=== PATIENT | female | born 1955 | race Caucasian/White ===

== ENCOUNTER 2019-01-30 14:43 | Outpatient (REF) | payer OTHER, SELFPAY ==
--- NOTE | 2019-01-30 10:00 | PAPFT_PTH ---
PATIENT: Tonja Luna LOC: [facility] U#:[id number] AGE/SX: 63/F ROOM: RE01/30/[address]: Janine Morris MD : 1955 BED: DIS: 01/30/2019 SPEC #: [id number] RECD: 01/30/19 17:49 STATUS: PUMA TEJEDA #: [id number] JONATHAN: 01/30/19 10:[address]: Janine Morris DEPT: [facility] Cytology RECD BY: Virginia Rivera Tissues: 1 - CX/ENDOCX FOR PAP SMEARS Procedures: PAP THIN PREP/UVM Screening HPV DNA PROBE Comments: [id number]
== END 2019-01-30 15:03 ==
LOC: LBN 14:43
PROVIDERS: PCP Family Medicine; Visit Provider Family Medicine
DX: Z12.4 Encounter for screening for malignant neoplasm of cervix (principal); Z11.51 Encounter for screening for human papillomavirus (HPV)
CPT/HCPCS: 88142; 87624

== ENCOUNTER 2020-03-24 01:48 | Outpatient (CLI) | payer BC, SELFPAY ==
--- NOTE | 2020-03-24 06:30 | DI.US_ITS ---
EXAM: US ABDOMEN CLINICAL HISTORY: POSTPRANDIAL UPPER ABD PAIN,R10.10 TECHNIQUE: Ultrasound abdomen performed using standard protocol. COMPARISON: CT ABD PELVIS WITH CONTRAST from 04/07/2015 FINDINGS: ABDOMINAL AORTA AND IVC: Visualized portions normal caliber. PANCREAS: Normal where visualized. LIVER: Normal. Hepatopedal flow in the Portal Vein. GALLBLADDER: Multiple mobile gallstones are visualized. No evidence of wall thickening. No perichole cystic fluid identified. BILIARY SYSTEM: Common bile duct measures < 7 mm. No intrahepatic biliary ductal dilation. MAYBERRY'S SIGN: Negative. KIDNEYS: Kidneys are symmetric in size. No evidence of renal calculi. No evidence of hydronephrosis. No renal mass or cyst identified. SPLEEN: Not enlarged. ASCITES: None seen. IMPRESSION: Cholelithiasis. No evidence of acute cholecystitis. DATA REPOSITORY:
== END 2020-03-24 02:08 ==
PROVIDERS: PCP Family Medicine; Visit Provider Family Medicine
DX: K80.20 Calculus of gallbladder without cholecystitis without obstruction (principal)
CPT/HCPCS: 76700

== ENCOUNTER 2020-03-24 04:30 | Outpatient (CLI) | payer BC, SELFPAY ==
[2020-03-24 08:00] LABS: HCT 40.6 % (36.0-46.0); HGB 13.6 g/dL (11.2-15.7); MCH 31.1 pg (27.0-33.0); MCHC 33.5 % (32.0-36.0); MCV 92.9 fL (80-95); MPV 9.9 fL (8.0-11.0); Platelet Count 177 10^3/uL (130-400); RBC 4.37 10^6/uL (3.93-5.22); RDW 12.2 % (11.7-14.6); RDW-SD 42.4 fL; WBC 3.35 10^3/uL (4.4-10.8)
[2020-03-24 08:42] LABS: ALT 66 U/L (14-59); AST 37 U/L (15-37); Albumin 3.7 g/dL (3.4-5.0); Alkaline Phosphatase 69 U/L (46-116); Anion Gap 5.2 mmol/L (3-11); BUN 14 mg/dL (7-18); Bilirubin, Total 0.6 mg/dL (0.2-1.0); CO2 31.8 mmol/L (21.0-32.0); CREATININE 0.81 mg/dL (0.55-1.02); Calcium 8.8 mg/dL (8.5-10.1); Chloride 103 mmol/L (98-107); Glucose 93 mg/dL (74-106); Potassium 4.5 mmol/L (3.5-5.1); Sodium 140 mmol/L (136-145); Total Protein 6.7 g/dL (6.4-8.2)
== END 2020-03-24 04:50 ==
PROVIDERS: PCP Family Medicine; Visit Provider Family Medicine
DX: Z00.00 Encounter for general adult medical examination without abnormal findings (principal); K21.9 Gastro-esophageal reflux disease without esophagitis
CPT/HCPCS: 36415; 80053; 85027

== ENCOUNTER 2020-06-28 10:58 | Outpatient (REF) | payer BC, SELFPAY ==
[2020-06-29 11:59] LABS: Helicobacter pylori Ag, Feces Negative (Negative)
== END 2020-06-28 10:59 | disposition home or self-care (01) ==
LOC: LBN 10:58
PROVIDERS: PCP Family Medicine; Visit Provider Family Medicine
DX: K21.9 Gastro-esophageal reflux disease without esophagitis (principal)
CPT/HCPCS: 87338

== ENCOUNTER 2020-08-30 02:44 | Outpatient (CLI) | payer BC, SELFPAY ==
[2020-08-30 10:06] LABS: Source Nasal/Nares
[2020-08-30 13:23] LABS: COVID-19 PCR Negative (Negative)
== END 2020-08-30 02:45 | disposition home or self-care (01) ==
LOC: LBO 02:44
PROVIDERS: PCP Family Medicine; Visit Provider Surgery
DX: Z20.822 Contact with and (suspected) exposure to COVID-19 (principal); Z01.818 Encounter for other preprocedural examination
CPT/HCPCS: 87635

== ENCOUNTER 2020-09-01 09:29 | Day surgery (SDC) | payer BC, SELFPAY ==
[2020-09-01] VITALS (9 sets, daily range): BP systolic 106–142; BP diastolic 52–101; PULSE 54–65; RESP 14–18; TEMP 36–36.4; O2SAT 95–100
--- NOTE | 2020-09-01 06:58 | ROE_ITS ---
Date of service: 09/01/20 Time of Service: 14:15 Operative Note Operative Note DATE OF PROCEDURE: 09/01/20 PRE-OP DIAGNOSIS: Billiary Cholic POST-OP DIAGNOSIS: same PROCEDURE: Laparoscopic Cholecystectomy SURGEON: Arely Brand OPERATIONS SUPPORT SPECIALIST: Crissy Livingston ANESTHESIA TYPE: Local By Surgeon and General LMA/ETT Refer to Anesthesia Record ESTIMATED BLOOD LOSS: 50 PATHOLOGY: other (Gallbladder) COMPLICATIONS: None Patient was transported to: PACU Patient's condition: stable Indications: Mrs. Luna is a pleasant 64-year-old female who has biliary colic from her history. She has had this now for a year and a half. I reviewed the anatomy and pathology of gallbladder disease. We reviewed the surgery using a pamphlet with pictures. We reviewed complications. 30 minutes were spent discussing the surgery with the patient. The patient would like to proceed. Risks, benefits, complications were reviewed with the patient in the office. Complications include but are not limited to bleeding, infection, injury to stomach, small bowel and large bowel, injury to the pancreas, injury to the common bile duct necessitating drainage and referral to tertiary center for repair, bile leak, adverse reactions to the medications, complications of intubation including a sore throat or injury to the uvula, ND, stroke and even . Questions were entertained and answered to her satisfaction and she wished to proceed. No guarantees were given or implied. COVID-19 testing explained to the patient. Reason for test reviewed. Quarantine per state requirements reviewed with patient. Patient understands and agrees to testing. Findings: dialated Gallbladder with multiple stones Procedure Description: After informed consent was obtained the patient was taken to the PACU and anesthesia performed a erector spine block for post operative comfort. Once the block was in place the patient was brought to the operating room, placed in a supine position and monitors were applied. SCDs were applied to her lower extremities and she was placed under general anesthesia and intubated without difficulty. Her abdomen was then prepped and draped in a sterile fashion using ChloraPrep. At this point a timeout was done and the patient's name, date of , procedure type, allergies to medications, metal in her body, antibiotic and DVT prophylaxis, and fire risk was assessed. At this point 0.25% Bupivocaine mixed 50/50 with Exparel was injected just above the umbilicus into the dermis and subcutaneous tissue. A 5 mm incision was made with an 11 blade. The skin next to the incision was grasped with penetrating towel clamps and while pulling up on the skin a 5 mm port was placed under direct visualization. The abdomen was insuflated and then 3 more ports were placed. A 12 mm port was placed in the subxiphoid area and two 5 mm ports were placed in the right upper quadrant. The liver was inspected and looked normal. Adhesions noted from the ascending colon to the peritoneum. The patient's bed was then turned to the left and her head was brought up. The gallbladder was grasped at the body and pushed towards the right shoulder, this allowed me to visualize the neck of the gallbladder. The neck was grasped and pulled towards the right flank and down allowing me to visualize the lymph node. Using a [place] dissector with cautery the lymph node was gently dissected away from the tissues and the fatty tissue was also dissected away. The cystic duct was identified it was normal in size. The duct was dissected 360 degrees using the [place] dissector in order for me to visualize its entrance into the gallbladder. Liver was noted behind it. There were no other structures right behind. Critical view was achieved. 3 clips were placed one proximal and 2 distal and the cystic duct was cut. The cystic artery was then identified and dissected 360 degrees. It was located just medial to the cystic duct. It was visualized going into the gallbladder. Once dissected 3 more clips were placed one proximal and 2 distal and the artery was cut. Using the hook dissector the gallbladder was then dissected away from the liver bed and placed into an Endo Catch bag and pulled through the 12 mm port site. The 12 mm port was placed back into the abdomen under direct visualization. The liver bed was inspected no bleeding was noted. The abdomen was then irrigated with a liter of normal saline until the effluent was clear. The 12 mm and the 2 right upper quadrant ports were removed under direct visualization and no bleeding was noted from the fascia. The abdomen was deflated completely and lastly the umbilical port was removed. The skin was cleaned and the incisions were closed with 4-0 Vicryl. The skin was dried and skin affix was applied over the closed incisions. Needle and sponge counts were correct at the end of the case. At this point the patient was woken up, extubated and taken back to recovery in stable condition. There were no immediate complications.
--- NOTE | 2020-09-01 07:01 | W.PM.DSUDISC ---
Discharge Plan Disposition Patient Disposition: HOME Condition: Good Discharge Details Reason For Visit: Laparoscopic Cholecystectomy Attending Provider: Arely Brand Primary Care Provider: Janine Morris Home Meds and New Rx's Prescriptions: New oxycodone 5 mg tablet 5 mg PO Q6H MDD 4 tabs PRN (Reason: pain) Qty: 14 RF: 0 Continued melatonin 5 mg Tablet 5 mg PO PRN PRNRF: 0 Discharge Instructions Instructions: Laparoscopic Cholecystectomy (DC) Additional Instructions: Activity at Home after surgery: 1. Make sure you walk outside at least 4 times per day 2. You should be able to climb a flight of stairs 3. No driving while in pain or taking pain medications 4. No strenuous activity or heavy lifting for 2 weeks (laparoscopic surgery) or 4 weeks (open surgery) Diet, Nutrition, & wound healin. Avoid alcohol until after you are recovered from your surgery 2. Make sure to eat plenty of lean protein (meat, fish, eggs, cottage cheese, beans) 3. Eat a variety of fruits and vegetables. Eat plenty of high fiber foods to avoid constipation. 4. Drink plenty of liquids to stay hydrated and avoid constipation Pain Medications: 1. Tylenol 650mg every 6 hours as needed and Ibuprofen 600 mg every 6 hours as needed. You may alternate between the 2 medications every 3 hours 2. If a narcotic has been prescribed take as directed only for breakthrough pain For Constipation: 1. Take Milk of Magnesia or MiraLax as needed for constipation Other: 1. You may shower daily. Do not scrub the incisions 2. Do not soak the incisions for 1 week 3. You may alternate ice and heat as needed for pain and swelling Wound Care: 1. Keep the incisions clean and dry Please call our office if you develop: 1. Fevers >101.5 2. Nausea or Vomiting 3. Worsening pain 4. Redness and thick discharge from the wounds If after hours please call the Hospital at and ask to speak to the on-call surgeon Referrals: Arely Brand MD [ [facility] STAFF PHYSICIAN] - Activity:: No lifting >20 lb Diet:: As Tolerated Discharge Orders Discharge Orders: Discharge Order (Routine); Ordered 09/01/20 Ordered By: Arely Brand
[2020-09-01] MEDS: Lactated Ringers 1,000 ML 80 ML IV (10:24)
[2020-09-01] MEDS: AMPICILLIN/SULBACTAM 3 GM in Normal Saline 100 ML IVPB (12:10)
--- NOTE | 2020-09-01 13:00 | GB_PTH ---
PATIENT: Tonja Luna LOC: [facility] U#:[id number] AGE/SX: 64/F ROOM: RE09/01/[address]: Arely Brand MD : 1955 BED: DIS: 09/01/2020 SPEC #: [id number] RECD: 09/01/20 17:42 STATUS: PUMA RERadha #: [id number] JONATHAN: 09/01/20 13:[address]: Arely Brand DEPT: Surgical Specimen RECD BY: Virginia Rivera ENTERED: 09/01/20 17:42 SP TYPE: GB OTHR DR: Janine Morris MD Tissues: 1 - GALLBLADDER Procedures: GROSS AND MICRO LEVEL 3 Comments: [id number]
[2020-09-01] MEDS: fentaNYL 100 MCG/2 ML VIAL IVP ×2 (13:45→13:51)
== END 2020-09-01 16:20 | disposition home or self-care (01) ==
LOC: SUR 09:29
PROVIDERS: PCP Family Medicine; Visit Provider Surgery
PROC: 0FT44ZZ Resection of Gallbladder, Percutaneous Endoscopic Approach (ICD-10-PCS; CPT 47563; principal; 2020-09-01 12:00)
DX: K80.10 Calculus of gallbladder with chronic cholecystitis without obstruction (principal)
CPT/HCPCS: 47562; 88304; J0295; J1100; J1885; J2001; J2405; J2704; J3010

== ENCOUNTER 2021-01-05 16:10 | Emergency (ER) | payer MEDICARE, BC, SELFPAY ==
[2021-01-05 16:18] VITALS: BP 146/54; PULSE 75; RESP 18; TEMP 36.3; O2SAT 99
[2021-01-05] MEDS: oxyCODONE 5 mg/Acetaminophen 325 mg TAB 1 TAB PO (16:42)
--- NOTE | 2021-01-05 17:11 | DI.RAD_ITS ---
Exam(s) XR KNEE LT 4V+ EXAM: XR KNEE LT 4V+ CLINICAL HISTORY: Struck laterally with wheelbarrow. TECHNIQUE: 2D digital imaging was performed. COMPARISON: No exams were available for comparison FINDINGS: There is a lateral tibial plateau fracture with depression. Large joint effusion-hemarthrosis. Felipe ot exclude subtle nondisplaced fracture of the fibular head. Femoral condyles appear unremarkable as does the patella. IMPRESSION: Lateral tibial plateau fracture. Additional views recommended to rule out fracture of the fibular he ad. DATA REPOSITORY: RADIATION DOSE DELIVERED:
--- NOTE | 2021-01-05 17:39 | DI.VRAD_ITS ---
PROCEDURE INFORMATION: Exam: XR Left Knee Exam date and time: 01/05/2021 4:32 PM Age: 65 years old Clinical indication: Injury or trauma; Other: Struck laterally with vrad; Blunt trauma; Knee; Left TECHNIQUE: Imaging protocol: XR Left knee. Views: 4 or more views. COMPARISON: No relevant prior studies available. FINDINGS: Bones/joints: There is an abnormal appearance within the lateral tibial plateau with multiple lucent lines and slight cortical step-off seen lateral to the lateral tibial plateau spine and along the lateral tibial metaphysis as seen on AP view. Fracture extends into the tibiofemoral joint space. Soft tissues: There is soft tissue edema along the lateral tibiofemoral joint. Large suprapatellar rapatellar effusion noted. IMPRESSION: Lateral tibial plateau comminuted minimally displaced fracture. Recommend orthopedic referral and CT left knee to better evaluate extent of fracture. Dictated and Authenticated by: Sloan Dotson MD. Ordering:SHAHEEN Rojas MD
--- NOTE | 2021-01-05 17:45 | DI.CT_ITS ---
Exam(s) CT LOWER EXTREMITY LT WO EXAM: CT LOWER EXTREMITY LT WO CLINICAL HISTORY: Tibial plateau fracture. TECHNIQUE: Imaging Protocol: Axial computed tomography images with coronal and sagittal reformatted images were created and reviewed. CONTRAST MATERIAL: Intravenous: Omnipaque 350 Contrast volume:structured data in ml Contrast route:I V - Oral: yes / no COMPARISON: PLAIN FILMS PERFORMED TODAY REVIEWED FINDINGS: OSSEOUS: There is a significantly depressed lateral tibial plateau fracture. Depressed by approximat pam 12 millimeters and comminuted. Fracture lines extend down into the metaphysis of the tibia. Me dially the fracture lines extend to the sub spinous level. No fracture in the medial tibial plateau nor in the femoral condyles and no fracture evident in in the fibular head and neck. No evidence of patellar fracture. No patellar displacement. Large joint effusion-hemarthrosis noted. IMPRESSION: Prominent depressed-impacted lateral tibial plateau fracture. Hemarthrosis. RADIATION DOSE DELIVERED: Total DLP DATA REPOSITORY: All CT scans at this facility are submitted to the National Radiology Data Registry (NRDR) Dose Index Registry (DIR) with the [employer] (ACR). RADIATION OPTIMIZATION: All CT scans at this facility use at least one of these dose optimization te chniques: automated exposure control; mA and/or kV adjustment per patient size (includes targeted exa ms where dose is matched to clinical indication); or iterative reconstruction.
--- NOTE | 2021-01-05 18:28 | ED.GENADUL_ITS ---
Discharge Plan Disposition Patient Disposition: HOME Condition: Stable Discharge Details Clinical Impression: Fracture, tibial plateau Primary Care Provider: Janine Morris ED Provider: Bob Kenyon Home Meds and New Rx's Prescriptions: New oxycodone-acetaminophen [Percocet] 5-325 mg tablet 1 tab PO Q8H PRNQty: 8 RF: 0 Continued melatonin 5 mg Tablet 5 mg PO PRN PRNRF: 0 Discharge Instructions Instructions: Leg Fracture (ED) Additional Instructions: X-ray and CT imaging reveals a tibial plateau fracture. Rest, elevate, wear long-leg immobilizer, use crutches, no weightbearing. Percocet as directed, this medication may cause drowsiness and/or constipation, you may consider taking fcxg-zde-pcuimro stool softener while on this medication. Cool compresses every 2 hours for 20 minutes. Please watch for new or worsening symptoms and return to the ER for any concerns. I personally spoke with Dr. Gonzalez, our donation specialist, he is aware of your visit and will be having his office contact you tomorrow. Referrals: Dorian Gonzalez MD [ [facility] STAFF PHYSICIAN] - Medical Decision Making 65-year-old female with a left knee injury after a wheelbarrow filled with cement struck her knee causing her to fall, no other injuries. Concern for fracture versus internal derangement, less concern for dislocation. Will provide 1 tablet p.o. Percocet and obtain x-ray of the left knee. Neuro, vascular, tendon intact. Left knee 4 view x-ray read by me as a comminuted, displaced, tibial plateau fracture. This was confirmed to radiology. Discussed case with Dr. Gonzalez, recommends pain control, nonweightbearing, crutches, long-leg immobilizer, and obtain CT imaging in the ER. CT imaging will not change ER outcome but will be helpful for outpatient evaluation. He will have the office contact the patient tomorrow to set up outpatient evaluation. I also placed the patient on the orthopedic list. CT of the knee obtained Discussed x-ray findings and my conversation with Dr. Gonzalez relayed with patient and family. Long-leg immobilizer and crutches with teaching given. Patient and family have no additional questions or concerns and are comfortable with discharge plan. A prescription for short-term analgesia will be provided Medical Records Medical records reviewed: Yes I reviewed the patient's medical records. Imaging Data Radiologic Study: Attestation: I personally reviewed and interpreted this imaging study as follows: Imaging: X-Ray Radiologist's impression: PROCEDURE INFORMATION: Exam: XR Left Knee Exam date and time: 01/05/2021 4:32 PM Age: 65 years old Clinical indication: Injury or trauma; Other: Struck laterally with vrad; Blunt trauma; Knee; Left TECHNIQUE: Imaging protocol: XR Left knee. Views: 4 or more views. COMPARISON: No relevant prior studies available. FINDINGS: Bones/joints: There is an abnormal appearance within the lateral tibial plateau with multiple lucent lines and slight cortical step-off seen lateral to the lateral tibial plateau spine and along the lateral tibial metaphysis as seen on AP view. Fracture extends into the tibiofemoral joint space. Soft tissues: There is soft tissue edema along the lateral tibiofemoral joint. Large suprapatellar rapatellar effusion noted. IMPRESSION: Lateral tibial plateau comminuted minimally displaced fracture. Recommend orthopedic referral and CT left knee to better evaluate extent of fracture. Thank you for allowing us to participate in the care of your patient. HPI General Mode of arrival: ambulatory . Date/Time Provider Initiated Documentation: 01/05/21 16:12 . Limitations to Documentation: no limitations . Information obtained by: patient and family . HPI Narrative: This is a 65-year-old female, denies any significant past medical history, presenting to the ER for a left knee injury that occurred approximately 1 hour ago. She was attempting to move a wheelbarrow full of cement when it struck the lateral aspect of her left knee causing her to fall to the ground. She denies any other injury. Denies numbness, tingling, weakness. Did not strike her head. She did not take any other medications prior to arrival. Denies any pain in her left hip, ankle, foot. Reports the pain is moderate at rest, severe with movement, has not been able to bear weight. Related Data Home Medications Medication Instructions Recorded Confirmed melatonin 5 mg PO PRN PRN 09/01/20 09/14/20 oxycodone-acetaminophen [Percocet] 1 tab PO Q8H PRN #8 tab 01/05/21 Previous Rx's Medication Instructions Recorded oxycodone-acetaminophen [Percocet] 1 tab PO Q8H PRN #8 tab 01/05/21 Allergies Allergy/AdvReac Type Severity Reaction Status Date / Time house dust [House Dust] Allergy Intermediate Unverified 09/14/20 08:00 peanut Allergy Mild Headache Unverified 09/14/20 08:00 General Stated Complaint: Orthopedic PEPE: 4 Review of Systems Constitutional Constitutional: Denies headache(s) ENT Ears, Nose, Mouth, and Throat: Denies headache(s) Cardiovascular Cardiovascular: Denies chest pain and Denies dyspnea Respiratory Respiratory: Denies dyspnea Musculoskeletal Musculoskeletal: Denies deformity, Reports arthralgias, Denies numbness, Reports stiffness and Denies tingling Integumentary/Breasts Skin/Breast: Denies rash Neurologic Neurologic: Denies headache(s), Denies numbness and Denies tingling [facility] Medical History Bartholin cyst removed Family history of malignant neoplasm of colon in relative diagnosed when younger than 50 years of age GERD (gastroesophageal reflux disease) Surgical History History of laparoscopic appendectomy (04/08/15) S/P laparoscopic cholecystectomy (~09/01/20) Family History Mother Diabetes Essential hypertension Breast cancer Father , age 36 in MVA No problems noted. Sister No problems noted. Sister , age 26 Colon cancer Brother No problems noted. Maternal Grandfather , age 65 Heart disease Paternal Grandfather , age 68 Heart disease Maternal Grandmother , age 89 No problems noted. Paternal Grandmother , age 93 No problems noted. Son No problems noted. Son No problems noted. Brother No problems noted. Social History Smoking/Tobacco Use Status: Former Tobacco Use Quit Date: 05/14/93 Tobacco: How many years used: 18 Second Hand Exposure: Yes Smoking risk assessment performed?: Yes Alcohol Intake: current Alcohol Intake frequency: 0-2 drinks per day Alcohol type: wine Drug use: Never Substance use type: former substance user and marijuana Details: last alcohol intake last night 183 Caregiver/Support person: No Household members: spouse Housing: house Communication Needs: None Do you need help understanding health information?: Never current occupation: [employer] Technician Pets and animals: Yes Pets and animals: cat(s) Sexually active: Yes Do you think of yourself as: straight/heterosexual Current gender identity: female What is your relationship status?: How often do you talk on the phone with friends or family?: twice per week How often do you get together with friends or relatives?: once per week How often do you attend quaker or sabianist services?: decline to answer Do you belong to any clubs or organized social groups?: no Panel score (0-1 are the most socially isolated patients): 2 What type of physical activity do you participate in: walking, bicycling and yoga Duration: 60-90 minutes/day Frequency: 3-4 times per week Jaimee/Congregational: None Special jaimee needs: No Seatbelt use: always Helmet use: Yes Helmet use: always Drive intox or ride w/intox city bus driver: No Do you feel safe at home: Yes Do you feel safe in your relationship?: Yes Victim of physical abuse: No Victim of emotional abuse: No Victim of sexual abuse: No Would you like helpful sources: No Exam Const General: cooperative, healthy appearing and no acute distress Orientation: alert and awake HENMT Head: normal to inspection, normocephalic and atraumatic Eyes General: appearance normal, both eyes and all related structures Conjunctivae: conjunctivae normal Neck Neck: normal visual inspection, full ROM, trachea midline and supple Resp Effort & Inspection: normal respiratory effort and able to speak in complete sentences Cardio Rate: regular rate Rhythm: regular rhythm Skin General skin exam: no rashes or lesions noted Neuro General: patient alert, patient awake, moves all extremities and no focal motor deficits Cognition: normal cognition Speech: speech normal Motor: muscle tone normal throughout Sensory Exam: no sensory deficits noted Extrem General: capillary refill normal Left lower extremity: normal capillary refill, hip/thigh Details: normal to inspection and normal ROM; no tenderness and no swelling, ankle Details: normal to inspection and normal ROM; no tenderness and no swelling and foot Details: normal capillary refill, normal to inspection, toes with normal ROM and vascular exam Details: dorsalis pedis pulse present and abnormal capillary refill; no tenderness Other: Left knee with diffuse mild swelling across the anterior and lateral aspect. Skin is intact. Full extension, limited flexion. Examination reveals diffuse discomfort across the anterior and lateral aspect but much worse across the tibial plateau. There is no point patellar discomfort. Examination is difficult, slightly guarded. Neuro, vascular, tendon intact. There does appear to be discomfort with anterior draw and valgus stress, no obvious laxity. Psych Appearance: grossly normal Mental Status: mental status grossly normal Course Vital Signs Vital signs: Vital Signs Temperature 36.3 C L 01/05/21 16:18 Pulse 75 01/05/21 16:18 Respiratory Rate 18 01/05/21 16:18 Blood Pressure 146/54 H 01/05/21 16:18 Pulse Oximetry 99 01/05/21 16:18 Temperature 36.3 C L 01/05/21 16:18 Temperature Source Temporal Artery Scan 01/05/21 16:18 Pulse 75 01/05/21 16:18 Respiratory Rate 18 01/05/21 16:18 Respiratory Effort Non-Labored 01/05/21 16:20 Blood Pressure 146/54 H 01/05/21 16:18 Blood Pressure Position Supine 01/05/21 16:18 Pulse Oximetry 99 01/05/21 16:18 Oxygen Delivery Method Room Air 01/05/21 16:18 Oxygen Flow Rate 0 01/05/21 16:18 Pain Level 8 01/05/21 16:42
--- NOTE | 2021-01-05 19:18 | DI.VRAD_ITS ---
PROCEDURE INFORMATION: Exam: CT Left Lower Extremity Without Contrast, Knee Exam date and time: 01/05/2021 5:51 PM Age: 65 years old Clinical indication: Other: Tibial plateau fracture TECHNIQUE: Imaging protocol: CT of the Left lower extremity without contrast was performed. Exam focused on the knee. Radiation optimization: All CT scans at this facility use at least one of these dose optimization techniques: automated exposure control; mA and/or kV adjustment per patient size (includes targeted exams where dose is matched to clinical indication); or iterative reconstruction. COMPARISON: CR XR KNEE LT 4V+ 01/05/2021 5:05 PM FINDINGS: Bones/joints: There is a comminuted minimally displaced fracture of the lateral tibial plateau with extension into the tibiofemoral joint space. The central portion of the lateral tibial plateau as seen on sagittal and coronal series appears collapsed. The adjacent fibula appears without acute osseous injury. No additional acute osseous injury seen. Soft tissues: There is lipohemarthrosis within the anterior knee. IMPRESSION: Comminuted minimally displaced lateral tibial plateau fracture with lipohemarthrosis. Recommend orthopedic referral. Dictated and Authenticated by: Sloan Dotson MD. Ordering:SHAHEEN Rojas MD
== END 2021-01-05 19:03 | disposition home or self-care (01) ==
PROVIDERS: Emergency Provider Physician Assistant; PCP Family Medicine
DX: S82.142A Displaced bicondylar fracture of left tibia, initial encounter for closed fracture (principal); W22.8XXA Striking against or struck by other objects, initial encounter
CPT/HCPCS: 29505; 99285; 73564; 73700; 99284

== ENCOUNTER → 2021-08-11 10:22 | Outpatient (BNVA) | payer MEDICARE, SELFPAY | PROVIDERS: PCP Family Medicine; Referring Provider Family Medicine; Visit Provider Physical Therapy Assistant | DX: Z12.11 Encounter for screening for malignant neoplasm of colon (principal); Z80.0 Family history of malignant neoplasm of digestive organs ==

== ENCOUNTER 2021-09-05 06:14 | Day surgery (SDC) | payer MEDICARE, SELFPAY ==
--- NOTE | 2021-09-05 06:25 | COLE_ITS ---
Colonoscopy Report Date of procedure: 09/05/21 Pre-op diagnosis general: Colon Cancer Screening and Family history of colon can cer Post-op diagnosis procedure note: other (rectal polyp, diverticulosis) Procedure: Colonoscopy Surgeon: Arely Brand Anesthesia Type: General:No Airway Estimated blood loss (mL): 2 Pathology: other (rectal polyp) Complications: None Disposition: same day Indications: The patient is here for Colonoscopy pre-op. Her last screening was in and was unremarkable. She has a family history of colon cancer in her sister. She has not had any bowel habit changes. -Discussed colonoscopy bowel prep as well as the procedure. Discussed possible complications of the procedure to include bleeding, pain, perforation, missed small lesion/polyp, sore throat, aspiration and adverse reaction to the medications. Questions were answered to patient?s satisfaction. No guarantees were implied or given.? Prep: Miralax/Dulcolax Procedure Start Time: 07:29 Procedure End Time: 07:53 Retraction Time: 10 minutes Findings: One small sessile polyp in the rectum Mild diverticulosis in the sigmoid colon Procedure Description: After informed consent was obtained the patient was taken to the procedure room and placed in a left decubitous position. Monitors were applied and a time out was done. The patients name, date of , procedure, allergies to medications and metal in their body was reviewed. The patient was then sedated. Once sedated and comfortable a rectal exam was done. External exam was normal. Internal exam revealed a normal sphincter tone and no palpable masses. The scope was then introduced and retro-flexed. No internal hemorrhoids, polyps or masses were identified on retro-flexion. The scope was then advanced to the cecum with some difficulty. The ileocecal vlave and appendiceal orifice were identified. The prep was good. The scope was then slowly retracted over 10 minutes back into the rectum. Polyps were removed with cold forceps in the rectum. There was mild sigmoid diverticulosis noted. The scope was removed and the patient was woken up and taken back to Same day surgery in stable condition. The patient tolerated the procedure well and there were no immediate complications. Follow up: The patient should follow up in 5 years unless they develop changes in bowel habits or other new gastrointestinal complaints.
--- NOTE | 2021-09-05 06:26 | W.PM.DSUDISC ---
Discharge Plan Disposition Patient Disposition: HOME Condition: Good Discharge Details Reason For Visit: Colonoscopy Attending Provider: Arely Brand Primary Care Provider: Amado Moeller Home Meds and New Rx's Prescriptions: Continued cholecalciferol (vitamin D3) 10 mcg (400 unit) capsule 10 mcg PO DAILY 0RF Discontinued bisacodyl [Dulcolax (bisacodyl)] 5 mg tablet,delayed release (DR/EC) 5 mg PO ONCE Qty: 4 0RF Rx Instructions: Take according to provider's instructions for colonoscopy prep. polyethylene glycol 3350 17 gram/dose powder 17 g PO ONCE Qty: 238 0RF Rx Instructions: To be taken as directed by prescriber's office for colonoscopy prep. Discharge Instructions Instructions: Colorectal Polyps (DC), Diverticulosis (DC) Additional Instructions: Findings: One small polyp in the rectum mild diverticulosis in the sigmoid colon Follow up: 5 years Please call if you develop: fevers >101.5 Nausea or Vomiting Abdominal pain that is not transient Rectal bleeding that is more then a tbsp A hard abdomen and inability to pass gas DAY SURGERY UNIT POST ENDOSCOPY INSTRUCTIONS Instructions for everyone who is given Anesthesia: For your safety, please do the following for the next 24 Hours: a. Do not drive or operate dangerous equipment b. Do not drink alcohol beverages or use any recreational drugs for the first 24 hours or while taking pain medications. The medications in your body may have a reaction that can be dangerous. c. Do not make any important decisions or sign any important papers 1. Generally there are no restrictions on your activity after a day or so has gone by, but you may feel a bit fatigued for a few days. 2. After you arrive home you may have a light meal and return to a normal diet as you can tolerate it without feeling sick to your stomach. 3. After surgery, you may feel pain or discomfort. This should be only transient, but if it persists please contact your doctor. 4. If there are any questions regarding the findings of your procedure, please feel free to contact your doctor. 6. If you are unable to contact your doctor with a problem, contact the hospital at [phone]. 7. Continue all your regular medications unless directed otherwise. I understand the above instructions and have no questions. Signature of Patient or Responsible Adult Escort Date/Time Name of Responsible Adult Escort Signature of Nurse Date/Time Activity:: Activity as Tolerated Diet:: high fiber diet Discharge Orders Discharge Orders: Discharge Order (Routine); Ordered 09/05/21 Ordered By: Arely Brand
[2021-09-05 06:33] VITALS: BP 125/70; PULSE 73; RESP 16; TEMP 36.1; O2SAT 99
--- NOTE | 2021-09-05 06:56 | ANES.PREOP_ITS ---
General Info Date of Service Date Performed: 09/05/21 Height: 5 ft 4.17 in Weight: 71.7 kg Body Mass Index (BMI): 26.9 Surgical Procedure: Operation Date: 09/05/21 07:35 Proposed Procedure Side Surgeon p Colonoscopy Arely Brand MD Meds Allergies and Home Medications Allergies Allergy/AdvReac Type Severity Reaction Status Date / Time house dust [House Dust] Allergy Intermediate Unverified 09/05/21 06:29 peanut Allergy Mild Headache Unverified 09/05/21 06:29 Home Medication Medication Instructions Recorded bisacodyl 5 mg tablet,delayed 5 mg PO ONCE #4 tab 08/11/21 release (Dulcolax (bisacodyl)) cholecalciferol (vitamin D3) 10 10 mcg PO DAILY 08/11/21 mcg (400 unit) capsule polyethylene glycol 3350 17 17 g PO ONCE #238 g 08/11/21 gram/dose oral powder Current Visit Medications: Current Medications Generic Name Dose Route Start Last Admin Trade Name Freq PRN Reason Stop Dose Admin Hyoscyamine Sulfate 0.125 mg 09/05/21 06:27 Hyoscyamine 0.125 Mg Sl/Oral/Chew SL DIRECTED PRN Ringer's Solution 1,000 mls @ 80 mls/hr 09/05/21 06:00 IV 10/02/21 23:59 INFUSION [facility] IV Miscellaneous Supplies 1 each 09/05/21 06:00 Iv Access IV 10/02/21 23:59 DIRECTED MARCE Ondansetron HCl 4 mg 09/05/21 06:27 Ondansetron 4 Mg/2 Ml Vial IVP Q4H PRN PRN Nausea / Vomiting Sodium Chloride 0 ml 09/05/21 06:00 Normal Saline Flush 10 Ml Syr IV 10/02/21 23:59 PRN PRN Sodium Chloride 0 ml 09/05/21 06:00 Normal Saline 10 Ml Vial IJ 10/02/21 23:59 DIRECTED PRN Sterile Water 0 ml 09/05/21 06:00 Water,Injection,Sterile 10 Ml Vial IJ 10/02/21 23:59 DIRECTED PRN PFSH Active Problems Active Problems: Problem Status Onset Code Immunization counseling Z71.89 Epigastric pain R10.13 Fracture, tibial plateau S82.143A Screening for colon cancer Z12.11 Medical History Medical History Family history of malignant neoplasm of colon in relative diagnosed when younger than 50 years of age GERD (gastroesophageal reflux disease) Medical History Comments:: Seasonal Allergies. pt has metal in Left knee. Surgical History Surgical History (Updated 09/05/21 @ 06:42 by Salima Maguire RN) Bartholin cyst removed History of laparoscopic appendectomy (04/08/15) Hx of knee surgery (01/12/21) per pt: left tibia knee fracture repair with plate and screws S/P laparoscopic cholecystectomy (~09/01/20) Tobacco Smoking/Tobacco Use Status: Former Tobacco Use Passive smoking exposure: Yes Second hand exposure: Yes Alcohol Alcohol Intake: current Alcohol intake frequency: 0-2 drinks per day Alcohol type: wine Substance Use Substance use: Rarely Substance use type: former substance user and marijuana Details: last alcohol intake last night 1829 Vital Signs and Lab Results Vital Signs Most Recent Vital Signs in EMR: Most Recent Vital Signs Temp Pulse Resp BP Pulse Ox 36.1 C L 73 16 125/70 99 09/05/21 06:33 09/05/21 06:33 09/05/21 06:33 09/05/21 06:33 09/05/21 06:33 Lab Results Blood Type / Crossmatch: No Data to Display Complete Blood Count: No Data to Display Complete Metabolic Panel: No Data to Display Liver Function Panel: No Data to Display Coagulation Panel: No Data to Display Cardiac Panel: No Data to Display Arterial Blood Gas: No Data to Display Venous Blood Gas: No Data to Display Pancreas Panel: No Data to Display Thyroid Panel: No Data to Display Infectious Disease: No Data to Display Blood Cultures: No Data to Display Toxicology Panel: No Data to Display Anesthesia Assessment and Plan Anesthesia History Personal History: No History of Anesthesia Complications Family History: No Family History of Anesthesia Complications Exercise Tolerance Exercise Tolerance: Metabolic Equivalents>4 Pertinent Negatives Pertinent Negatives: No Major Cardiovascular Symptoms or Complaints and No Major Pulmonary Symptoms or Complaints Cardiac & Pulmonary Exam Cardiac Exam: Normal S1/S2 Heart Sounds Pulmonary Exam: Clear Bilateral Breath Sounds Implantable Cardiac Device Does patient have a Pacemaker or an ICD?: No Airway Exam Known Difficult Airway: No Mallampati Class: 2 Mouth Opening: Normal (> 3cm) Thyromental Distance: Greater than 3 cm Neck Range of Motion: Full ROM Neck Circumference: Normal Teeth Condition: Normal Dentition ASA Classification ASA Score: ASA 2 Emergency Case?: No NPO Status NPO Status: NPO Clears >2 hours, Solids >8 hours Anesthesia Plan Resuscitation Status: Full Code Anesthesia Technique: General Anesthesia Airway Planned: Natural Airway Monitors Used: Standard Monitors
[2021-09-05] MEDS: Lactated Ringers 1,000 ML 80 ML IV (06:57)
[2021-09-05 06:58] VITALS: BMI 26.9
--- NOTE | 2021-09-05 07:50 | BOWEL_PTH ---
PATIENT: Tonja Luna LOC: [facility] U#:[id number] AGE/SX: 65/F ROOM: RE09/05/[address]: Arely Brand MD : 1955 BED: DIS: 09/05/2021 SPEC #: [id number] RECD: 09/05/21 12:49 STATUS: PUMA REQ #: [id number] JONATHAN: 09/05/21 07:[address]: Arely Brand DEPT: Surgical Specimen RECD BY: Virginia Rivera ENTERED: 09/05/21 12:50 SP TYPE: Bowel OTHR DR: Amado Moeller Tissues: 1 - BIOPSY BOWEL Procedures: GROSS AND MICRO LEVEL 4 Comments: [id number]
[2021-09-05 07:57] VITALS: BP 116/66; PULSE 70; RESP 14; TEMP 36.5; O2SAT 99
[2021-09-05 08:26] VITALS: BP 131/65; PULSE 68; RESP 16; TEMP 36; O2SAT 99
--- NOTE | 2021-09-05 08:29 | W.ANESPOSTOP ---
Postoperative Evaluation Date, Time and Location Date Performed: 09/05/21 Time Performed: 07:58 Patient Location: Day Surgery Unit Vital Signs Most Recent Imported Vital Signs: Most Recent Vital Signs Temp Pulse Resp BP Pulse Ox 36 C L 68 16 131/65 99 09/05/21 08:26 09/05/21 08:26 09/05/21 08:26 09/05/21 08:26 09/05/21 08:26 Pain Score Most Recent Pain Score: Most Recent Pain Score Pain Level 0 09/05/21 08:26 Assessment Mental Status: Awake (Alert & Oriented to Patient Baseline) Airway and Respiratory Function: Patent airway with normal (patient baseline) respiratory exam Cardiovascular Function: Hemodynamically Stable Hydration Status: Adequately Hydrated Nausea & Vomiting: No Nausea or Vomiting Pain: Pt. Denies Any Pain Peripheral Nerve Block: Patient did not receive a nerve block
== END 2021-09-05 09:02 | disposition home or self-care (01) ==
PROVIDERS: PCP Family Medicine; Visit Provider Surgery
PROC: 0DJD8ZZ Inspection of Lower Intestinal Tract, Via Natural or Artificial Opening Endoscopic (ICD-10-PCS; CPT 45378; principal; 2021-09-05 07:30)
DX: Z12.11 Encounter for screening for malignant neoplasm of colon (principal); K62.1 Rectal polyp; K57.30 Diverticulosis of large intestine without perforation or abscess without bleeding; Z80.0 Family history of malignant neoplasm of digestive organs
CPT/HCPCS: 45380; 88305; J2001

== ENCOUNTER 2022-06-08 01:20 | Outpatient (CLI) | payer MEDICARE, SELFPAY ==
--- NOTE | 2022-06-08 07:45 | DI.DEXA_ITS ---
Exam(s) XR DEXA BONE DENSITY W/WO NUZHAT EXAM: XR DEXA BONE DENSITY W/WO NUZHAT CLINICAL HISTORY: screening for osteoporosis in postmenopausal woman,z78.0 TECHNIQUE: Routine DEXA evaluation of the lumbar spine, hip, or forearm. COMPARISON: No exams were available for comparison FINDINGS: Performed on a Hologic unit. Lateral image: No compression fracture evident. Lumbar Spine total T-score: -2.5 Hip total T-score:-2.0 Independent reading at the level of the femoral neck yields T-score of -3.0 Forearm total T-score: -3.2 IMPRESSION: Bone mineral density measures in the osteoporosis range. Fracture risk is high. Note: Any spine fracture indicates 5x risk for subsequent spine fracture and 2x risk for subsequent h ip fracture. World Health Organization criteria for BMD interpretation classify patients: Normal...... T- Score at or above -1.0 Osteopenic... T- Score between -1.0 and -2.5 Osteoporosis... T-Score at or below -2.5
== END 2022-06-08 01:40 ==
LOC: DI 01:20
PROVIDERS: PCP Nurse Practitioner Family; Visit Provider Nurse Practitioner Family
DX: Z78.0 Asymptomatic menopausal state (principal); Z13.820 Encounter for screening for osteoporosis; M81.0 Age-related osteoporosis without current pathological fracture
CPT/HCPCS: 77080

== ENCOUNTER 2022-06-08 02:31 | Outpatient (CLI) | payer MEDICARE, SELFPAY ==
[2022-06-08 13:07] LABS: Hemoglobin A1C 5.5 % (<5.7)
[2022-06-08 13:21] LABS: BUN 21 mg/dL (7-18); Calcium 9.3 mg/dL (8.5-10.1); Calculated LDL 169 mg/dL (<100); Chloride 102 mmol/L (98-107); Cholesterol 284 mg/dL (<200); Estimated GFR 62.13 (mL/min/1.73m2); Glucose 125 mg/dL (74-106); HDL Cholesterol 75 mg/dL (40-60); Potassium 3.9 mmol/L (3.5-5.1); Sodium 139 mmol/L (136-145); TSH (W/Ref FT4) 2.23 uIU/mL (0.36-3.74); Triglyceride 202 mg/dL (<150)
== END 2022-06-08 02:32 | disposition home or self-care (01) ==
LOC: LBO 02:31
PROVIDERS: PCP Nurse Practitioner Family; Visit Provider Nurse Practitioner Family
DX: E78.5 Hyperlipidemia, unspecified (principal); R73.01 Impaired fasting glucose
CPT/HCPCS: 36415; 80048; 80061; 83036; 84443

== ENCOUNTER 2022-07-26 02:04 | Outpatient (RCR) | payer MEDICARE, SELFPAY ==
[2022-07-26] MEDS: ZOLEDRONIC ACID/MANNITOL/WATER 5 MG/100 ML BTL 300 MG IVPB (09:05)
[2022-07-26] MEDS: Normal Saline Flush 10 ML SYR IVP (09:09)
== END 2022-08-11 23:59 | disposition home or self-care (01) ==
LOC: INF 02:04
PROVIDERS: PCP Nurse Practitioner Family; Visit Provider Nurse Practitioner Family
DX: M81.0 Age-related osteoporosis without current pathological fracture (principal)
CPT/HCPCS: 96365; J3489

== ENCOUNTER 2022-08-08 01:24 | Outpatient (CLI) | payer MEDICARE, SELFPAY ==
--- NOTE | 2022-08-08 08:00 | DI.US_ITS ---
Exam(s) US HERNIA EXAM: US HERNIA CLINICAL HISTORY: ? left inguinal hernia,lt groin mass,r19.09. TECHNIQUE: Ultrasound was performed using standard protocol. COMPARISON: CT ABD PELVIS WITH CONTRAST from 04/07/2015 FINDINGS: Sonographic assessment utilizing grayscale and color Doppler imaging was performed and targeted to th e area of clinical concern. There are bilateral normal appearing lymph nodes in the inguinal regions. The largest on the right m easures 2.1 x 1.1 x 1.6 cm. In the left inguinal region there is a hypoechoic mass measuring 3.7 x 2 .1 x 3.1 cm. There may be a connection to another adjacent lymph node in the region. IMPRESSION: 3.7 x 2.1 x 3.1 cm hypoechoic mass in the left inguinal region. It does not have a fat vascular hilu m like sonographically normal lymph nodes exhibit. This may represent a pathologic lymph node which can be seen with infection/inflammation or possible neoplasm. CT scan of the pelvis with contrast damien uld be considered for further evaluation. DATA REPOSITORY:
== END 2022-08-08 01:44 ==
LOC: DI 01:24
PROVIDERS: PCP Nurse Practitioner Family; Visit Provider Nurse Practitioner Family
DX: R19.04 Left lower quadrant abdominal swelling, mass and lump
CPT/HCPCS: 76857

== ENCOUNTER 2022-08-24 00:50 | Outpatient (CLI) | payer MEDICARE, SELFPAY ==
--- NOTE | 2022-08-24 09:00 | DI.CT_ITS ---
Exam(s) CT PELVIC W EXAM: CT PELVIC W CLINICAL HISTORY: f/u US, LT GROIN MASS, R19.09. TECHNIQUE: Imaging Protocol: Axial computed tomography images with coronal and sagittal reformatted images were created and reviewed. CONTRAST MATERIAL: Intravenous: Omnipaque 350 Contrast volume:100 mL contrast route:IV - Oral: yes COMPARISON: CT ABD PELVIS WITH CONTRAST from 04/07/2015 US US HERNIA from 08/08/2022 FINDINGS: Soft tissues: Homogeneous ovoid mass left groin, consistent with a lymph node, measuring 4.2 x 2.7 by 3.6 cm. Or other smaller adjacent lymph nodes noted in the left inguinal region. Small right groin adenopathy also present, largest measuring 2.2 cm. Several enlarged retroperitoneal lymph nodes are noted, 1 below the aortic bifurcation measuring 12 millimeters in the other to the right of the righ t common iliac artery measuring 15 millimeters. Other tiny mesenteric nodes are seen. Bladder: Symmetric distention, no gross wall thickening. Bowel: S/P appendectomy. Mild diverticulosis. No obstruction or bowel wall thickening. Peritoneal cavity: No ascites, collection or mesenteric inflammatory response. Reproductive: Unremarkable. Bones: No fracture, lytic or blastic lesion. IMPRESSION: Markedly enlarged lymph node in the left groin region. Other smaller but abnormally enlarged lymph n odes noted in the right groin and retroperitoneum. The findings could represent lymphoma. RADIATION DOSE DELIVERED: 495.39mGy.cm Total DLP DATA REPOSITORY: All CT scans at this facility are submitted to the National Radiology Data Registry (NRDR) Dose Index Registry (DIR) with the [employer] (ACR). RADIATION OPTIMIZATION: All CT scans at this facility use at least one of these dose optimization te chniques: automated exposure control; mA and/or kV adjustment per patient size (includes targeted exa ms where dose is matched to clinical indication); or iterative reconstruction.
[2022-08-24] MEDS: Barium Sulfate 2% W/V-Creamy Vanilla Smoothie 450 ML BTL 900 ML PO (09:27)
[2022-08-24 09:31] LABS: CREATININE 0.7 mg/dL (0.55-1.02); Estimated GFR 95.32 (mL/min/1.73m2)
[2022-08-24] MEDS: Omnipaque 350 MG/ML 500 ML BTL-Imaging package 100 ML IJ (10:56)
[2022-08-24] MEDS: Normal Saline - Diluent 50 ML VIAL IJ (10:58)
== END 2022-08-24 01:10 ==
LOC: DI 00:50
PROVIDERS: PCP Nurse Practitioner Family; Visit Provider Nurse Practitioner Family
DX: R19.09 Other intra-abdominal and pelvic swelling, mass and lump (principal); Z01.812 Encounter for preprocedural laboratory examination; R59.0 Localized enlarged lymph nodes
CPT/HCPCS: 72193; 82565

== ENCOUNTER → 2022-08-28 10:26 | Outpatient (BNVA) | payer MEDICARE, SELFPAY | PROVIDERS: PCP Nurse Practitioner Family; Referring Provider Nurse Practitioner Family; Visit Provider Surgery | DX: R59.1 Generalized enlarged lymph nodes (principal) | CPT/HCPCS: 99213; 99214 ==

== ENCOUNTER 2022-08-29 02:47 | Outpatient (CLI) | payer MEDICARE, SELFPAY ==
[2022-08-29 13:46] LABS: Abs Immature Grans 0.01 10^3/uL (0.0-0.06); Absolute Basophil Count 0.02 10^3/uL (0.0-0.2); Absolute Eosinophil Count 0.04 10^3/uL (0.0-0.7); Absolute Lymphocyte Count 0.99 10^3/uL (1.2-3.4); Absolute Monocyte Count 0.29 10^3/uL (0.1-0.8); Absolute Neutrophil Count 3.07 10^3/uL (1.2-6.7); Basophils % 0.5; Eosinophils % 0.9; HCT 39.5 % (36.0-46.0); HGB 13.3 g/dL (11.2-15.7); Immature Grans % 0.2; Lymphocytes % 22.4; MCH 30.6 pg (27.0-33.0); MCHC 33.7 % (32.0-36.0); MCV 91 fL (80-95); MPV 9.4 fL (8.0-11.0); Monocytes % 6.6; Neutrophils % 69.4; Platelet Count 188 10^3/uL (130-400); RBC 4.34 10^6/uL (3.93-5.22); RDW 12.3 % (11.7-14.6); WBC 4.42 10^3/uL (4.4-10.8)
[2022-08-29 14:08] LABS: ALT 41 U/L (14-59); AST 25 U/L (15-37); Albumin 4.1 g/dL (3.4-5.0); Alkaline Phosphatase 68 U/L (46-116); Anion Gap 5.4 mmol/L (3-11); BUN 22 mg/dL (7-18); Bilirubin, Total 0.5 mg/dL (0.2-1.0); CO2 30.6 mmol/L (21.0-32.0); CREATININE 0.9 mg/dL (0.55-1.02); Calcium 9.1 mg/dL (8.5-10.1); Chloride 104 mmol/L (98-107); Estimated GFR 70.51 (mL/min/1.73m2); Glucose 131 mg/dL (74-106); Potassium 3.9 mmol/L (3.5-5.1); Sodium 140 mmol/L (136-145); Total Protein 7.6 g/dL (6.4-8.2)
[2022-08-30 10:34] LABS: HIV-1/2 Ag & Ab Screen Negative (Negative)
== END 2022-08-29 02:48 | disposition home or self-care (01) ==
PROVIDERS: PCP Nurse Practitioner Family; Visit Provider Nurse Practitioner Family
DX: R59.1 Generalized enlarged lymph nodes (principal); Z11.4 Encounter for screening for human immunodeficiency virus [HIV]
CPT/HCPCS: 36415; 80053; 87389; 85025

== ENCOUNTER 2022-08-30 09:55 | Day surgery (SDC) | payer MEDICARE, SELFPAY ==
--- NOTE | 2022-08-30 07:10 | W.PM.OP ---
Date of service: 08/30/22 Time of Service: 12:00 Operative Note Operative Note DATE OF PROCEDURE: 08/30/22 PRE-OP DIAGNOSIS: lymphadenopathy POST-OP DIAGNOSIS: same PROCEDURE: Excisional biopsy of left inguinal lymph node SURGEON: Arely Brand ANESTHESIA TYPE: Local By Surgeon and General:No Airway Refer to Anesthesia Record ESTIMATED BLOOD LOSS: 5 PATHOLOGY: other (lymphnode) COMPLICATIONS: None Patient was transported to: same day Patient's condition: stable Indications: Mrs Luna is a pleasant 66-year-old female who comes in today because of bilateral inguinal and retroperitoneal lymphadenopathy.? On exam she also has right axillary lymphadenopathy.? This is concerning for lymphoma.? No signs of infection today no scratches on her skin.? Discussed FNA versus excisional biopsy of the lymph node.? I recommend excisional biopsy of the lymph node because this will give the pathologist more tissue so that they can look for malignancy but can also look for infectious sources.? The procedure was discussed with her and her as well as the risks, benefits and complications.? Patient understands the risks, benefits and complications and wishes to proceed.? Complications include but are not limited to bleeding, infection, wound dehiscence, seroma, hematoma and adverse reactions to the medications. Findings: Large 4 x 3 cm lymphnode Matted lymphnodes Procedure Description: After informed consent was obtained the patient was taken to the operating room and placed in the supine position. Monitors were applied and the patient was placed under general without airway. A timeout was then done. The patient's name, date of , allergies to medications, procedure to be done and site, DVT prophylaxis and antibiotic prophylaxis were reviewed. Fire risk was assessed. Next her left groin area was prepped and draped in a sterile surgical fashion. Half percent bupivacaine with epinephrine was injected into the dermis and subcutaneous tissue. A 3 cm incision was then made over the palpable lymph node with a 15 blade. The subcutaneous tissue was dissected using cautery. A self retractor was placed. Dissection continued with cautery until I got down to the lymph node. The lymph node felt soft but was quite enlarged. Vascular clips were used to clip the a fair and did not even parent vessels. The lymph node was then dissected bluntly with my finger. The vessels were cut in between the clips. The lymph node was removed and placed into a sterile container and sent to pathology. The wound was irrigated. Some bleeding was noted and a clip was placed. Multiple other lymph nodes were identified and palpated that were enlarged. Once the field was dry and there was no more bleeding the subcutaneous tissue was reapproximated with 3-0 Vicryl interrupted sutures. The dermis was closed with 4-0 Monocryl. The skin was cleaned and dried and Dermabond was applied. The patient was woken up and taken back to same-day surgery in stable condition. There were no immediate complications. Sponge instrument needle counts were correct at the end of the case.
--- NOTE | 2022-08-30 07:12 | PDOC.DSDIS_ITS ---
Date of service: 08/30/22 Time of Service: 13:01 Discharge Plan Disposition Patient Disposition: Home Condition: Stable Discharge Details Reason For Visit: excisional biopsy of left inguinal lymph node Attending Provider: Arely Brand Primary Care Provider: Varsha Garzon Home Meds and New Rx's Prescriptions: Continued cholecalciferol (vitamin D3) 10 mcg (400 unit) capsule 10 mcg PO DAILY Discharge Instructions Additional Instructions: Activity at Home after surgery: 1. Make sure you walk outside at least 4 times per day 2. You should be able to climb a flight of stairs 3. No driving while in pain or taking pain medications 4. No strenuous activity or heavy lifting for 2 weeks (laparoscopic surgery) or 4 weeks (open surgery) Diet, Nutrition, & wound healin. Avoid alcohol until after you are recovered from your surgery 2. Make sure to eat plenty of lean protein (meat, fish, eggs, cottage cheese, beans) 3. Eat a variety of fruits and vegetables. Eat plenty of high fiber foods to avoid constipation. 4. Drink plenty of liquids to stay hydrated and avoid constipation Pain Medications: 1. Tylenol 650mg every 6 hours as needed and Ibuprofen 600 mg every 6 hours as needed. You may alternate between the 2 medications every 3 hours 2. If a narcotic has been prescribed take as directed only for breakthrough pain For Constipation: 1. Take Milk of Magnesia or MiraLax as needed for constipation Other: 1. You may shower daily. Do not scrub the incisions 2. Do not soak the incisions for 1 week 3. You may alternate ice and heat as needed for pain and swelling Wound Care: 1. Keep the incisions clean and dry Please call our office if you develop: 1. Fevers >101.5 2. Nausea or Vomiting 3. Worsening pain 4. Redness and thick discharge from the wounds If after hours please call the Hospital at and ask to speak to the on-call surgeon Referrals: Arely Brand MD [ [facility] STAFF PHYSICIAN] - 09/11/22 8:00 am Activity:: Activity as Tolerated Diet:: As Tolerated Discharge Orders Discharge Orders: Discharge Order (Routine); Ordered 08/30/22 Ordered By: Arely Brand
[2022-08-30 10:00] VITALS: BP 148/60; PULSE 74; RESP 16; TEMP 36.4; O2SAT 98
[2022-08-30] MEDS: Lactated Ringers 1,000 ML 80 ML IV (10:35)
--- NOTE | 2022-08-30 11:29 | ANES.PREOP_ITS ---
General Info Date of Service Date Performed: 08/30/22 Height: 5 ft 4 in Weight: 74.8 kg Body Mass Index (BMI): 28.3 Surgical Procedure: Operation Date: 08/30/22 12:10 Proposed Procedure Side Surgeon p Excision Inguinal Lymph Node Left Arely Brand MD Meds Allergies and Home Medications Allergies Allergy/AdvReac Type Severity Reaction Status Date / Time house dust [House Dust] Allergy Intermediate Unverified 08/29/22 10:14 peanut Allergy Mild Headache Unverified 08/29/22 10:14 Home Medication Medication Instructions Recorded cholecalciferol (vitamin D3) 10 10 mcg PO DAILY 08/11/21 mcg (400 unit) capsule Current Visit Medications: Current Medications Generic Name Dose Route Start Last Admin Trade Name Freq PRN Reason Stop Dose Admin Acetaminophen 650 mg 08/30/22 07:13 Acetaminophen 325 Mg Tab PO Q4H PRN PRN Ringer's Solution 1,000 mls @ 80 mls/hr 08/30/22 06:00 IV 09/10/22 23:59 [facility]ION [facility] Ondansetron HCl 4 mg/ Sodium 52 mls @ 200 mls/hr 08/30/22 07:13 Chloride IVPB Q6H PRN PRN IV Miscellaneous Supplies 1 each 08/30/22 06:00 Iv Access IV 09/10/22 23:59 DIRECTED MARCE Ibuprofen 600 mg 08/30/22 07:13 Ibuprofen 600 Mg Tab PO Q6H PRN PRN Pain Sodium Chloride 0 ml 08/30/22 06:00 Normal Saline Flush 10 Ml Syr IV 09/10/22 23:59 PRN PRN Sodium Chloride 0 ml 08/30/22 06:00 Normal Saline 10 Ml Vial IJ 09/10/22 23:59 DIRECTED PRN Sterile Water 0 ml 08/30/22 06:00 Water,Injection,Sterile 10 Ml Vial IJ 09/10/22 23:59 DIRECTED PRN PFSH Active Problems Active Problems: Problem Status Onset Code Hyperlipidemia E78.5 Sigmoid diverticulosis K57.30 Lymphadenopathy R59.1 Medical History Medical History BCC (basal cell carcinoma), face Family history of malignant neoplasm of colon in relative diagnosed when younger than 50 years of age GERD (gastroesophageal reflux disease) Pt. denies states it was her gallbladder Left groin mass Medical History Comments:: Seasonal Allergies. pt has metal in Left knee. Surgical History Surgical History History of colonoscopy (~08/2021) History of laparoscopic appendectomy (04/08/15) Hx of knee surgery (01/12/21) per pt: left tibia knee fracture repair with plate and screws S/P laparoscopic cholecystectomy (~09/01/20) S/P ORIF (open reduction internal fixation) fracture for left tibial plateau fracture Status post Mohs surgery Tobacco Smoking/Tobacco Use Status: Former Tobacco Use Passive smoking exposure: Yes Second hand exposure: Yes Alcohol Alcohol Intake: current Alcohol intake frequency: a few times a week Alcohol type: wine and hard liquor Substance Use Substance use: Rarely Substance use type: former substance user and marijuana Vital Signs and Lab Results Vital Signs Most Recent Vital Signs in EMR: Most Recent Vital Signs Temp Pulse Resp BP Pulse Ox 36.4 C L 74 16 148/60 H 98 08/30/22 10:00 08/30/22 10:00 08/30/22 10:00 08/30/22 10:00 08/30/22 10:00 Lab Results Blood Type / Crossmatch: No Data to Display Complete Blood Count: White Blood Count 4.42 10^3/uL (4.4-10.8) 08/29/22 13:37 Red Blood Count 4.34 10^6/uL (3.93-5.22) 08/29/22 13:37 Hemoglobin 13.3 g/dL (11.2-15.7) 08/29/22 13:37 Hematocrit 39.5 % (36.0-46.0) 08/29/22 13:37 Platelet Count 188 10^3/uL (130-400) 08/29/22 13:37 Complete Metabolic Panel: Sodium 140 mmol/L (136-145) 08/29/22 13:37 Potassium 3.9 mmol/L (3.5-5.1) 08/29/22 13:37 Chloride 104 mmol/L (98-107) 08/29/22 13:37 Carbon Dioxide 30.6 mmol/L (21.0-32.0) 08/29/22 13:37 BUN 22 mg/dL (7-18) H 08/29/22 13:37 Creatinine 0.9 mg/dL (0.55-1.02) 08/29/22 13:37 Est GFR (CKD-EPI 2020) 70.51 (mL/min/1.73m2) 08/29/22 13:37 Calcium 9.1 mg/dL (8.5-10.1) 08/29/22 13:37 Albumin 4.1 g/dL (3.4-5.0) 08/29/22 13:37 Glucose 131 mg/dL (74-106) H 08/29/22 13:37 Liver Function Panel: Alanine Aminotransferase (ALT/SGPT) 41 U/L (14-59) 08/29/22 13: 37 Aspartate Amino Transf (AST/SGOT) 25 U/L (15-37) 08/29/22 13:37 Coagulation Panel: No Data to Display Cardiac Panel: No Data to Display Arterial Blood Gas: No Data to Display Venous Blood Gas: No Data to Display Pancreas Panel: No Data to Display Thyroid Panel: No Data to Display Infectious Disease: HIV (1&2) Ag and Ab, 4th Generation Pending 08/29/22 13: 37 Blood Cultures: No Data to Display Toxicology Panel: No Data to Display Anesthesia Assessment and Plan Anesthesia History Personal History: No History of Anesthesia Complications Family History: No Family History of Anesthesia Complications Exercise Tolerance Exercise Tolerance: Metabolic Equivalents>4 Pertinent Negatives Pertinent Negatives: No Symptoms of GERD, No Major Cardiovascular Symptoms or Complaints and No Major Pulmonary Symptoms or Complaints Cardiac & Pulmonary Exam Cardiac Exam: Normal S1/S2 Heart Sounds Pulmonary Exam: Clear Bilateral Breath Sounds Implantable Cardiac Device Does patient have a Pacemaker or an ICD?: No Airway Exam Known Difficult Airway: No Mallampati Class: 2 Mouth Opening: Normal (> 3cm) Thyromental Distance: Greater than 3 cm Neck Range of Motion: Full ROM Neck Circumference: Normal Teeth Condition: Normal Dentition ASA Classification ASA Score: ASA 2 Emergency Case?: No NPO Status NPO Status: NPO Clears >2 hours, Solids >8 hours Anesthesia Plan Resuscitation Status: Full Code Anesthesia Technique: General Anesthesia Airway Planned: Natural Airway Monitors Used: Standard Monitors
[2022-08-30 11:30] VITALS: BMI 28.3
--- NOTE | 2022-08-30 11:37 | W.PM.PROGNOT ---
Date of Service Date of service: 08/30/22 Time of Service: 11:37 Assessment and Plan Assessment and plan (1) Lymphadenopathy: Status: Acute Assessment and plan: Risks, benefits and complications were again reviewed with the patient. She understands the procedure and has no further questions. She wishes to proceed with excisional biopsy Subjective Subjective Interval history since last seen: Patient seen in [facility]. She is doing well. Left groin was marked. Discussed procedure, risks and complications. Exam Resp Effort & Inspection: normal respiratory effort Auscultation: clear to auscultation bilaterally Cardio Rate: regular rate Rhythm: regular rhythm Objective Last Vital Signs Temp 97.5 F L 08/30/22 10:00 Pulse 74 08/30/22 10:00 Resp 16 08/30/22 10:00 BP 148/60 H 08/30/22 10:00 Pulse Ox 98 08/30/22 10:00 Time Spent with Patient Time Spent with Patient: <25 minutes Time was spent: counseling the patient
[2022-08-30] MEDS: Bupivacaine 0.5% Pres-Free W/EPI 30 ML VIAL (12:18)
--- NOTE | 2022-08-30 12:21 | LYM_PTH ---
PATIENT: Tonja Luna LOC: [facility] U#:[id number] AGE/SX: 66/F ROOM: RE08/30/[address]: Arely Brand MD : 1955 BED: DIS: 08/30/2022 SPEC #: [id number] RECD: 08/30/22 13:11 STATUS: PUMA RERadha #: [id number] JONATHAN: 08/30/22 12:[address]: Arely Brand DEPT: Surgical Specimen RECD BY: Virginia Rivera ENTERED: 08/30/22 13:12 SP TYPE: LYM OTHR DR: CORTES Ram Tissues: 1 - LYMPH NODE RESECTION Procedures: SPECIAL STAIN 2 GROSS AND MICRO LEVEL 4 IMMUNOPEROXIDASE STAIN Single Probe In Situ Hybridization MIB-1 IHC Semi Quantative % Comments: [id number]
[2022-08-30 12:39] VITALS: BP 116/58; PULSE 67; RESP 18; TEMP 36.1; O2SAT 98
--- NOTE | 2022-08-30 13:02 | W.ANESPOSTOP ---
Postoperative Evaluation Date, Time and Location Date Performed: 08/30/22 Time Performed: 13:03 Patient Location: Day Surgery Unit Vital Signs Most Recent Imported Vital Signs: Most Recent Vital Signs Temp Pulse Resp BP Pulse Ox 36.1 C L 67 18 116/58 L 98 08/30/22 12:39 08/30/22 12:39 08/30/22 12:39 08/30/22 12:39 08/30/22 12:39 Pain Score Most Recent Pain Score: Most Recent Pain Score Pain Level 0 08/30/22 12:39 Assessment Mental Status: Awake (Alert & Oriented to Patient Baseline) Airway and Respiratory Function: Patent airway with normal (patient baseline) respiratory exam Cardiovascular Function: Hemodynamically Stable Hydration Status: Adequately Hydrated Nausea & Vomiting: No Nausea or Vomiting Pain: Pt. Denies Any Pain Peripheral Nerve Block: Patient did not receive a nerve block
[2022-08-30 13:10] VITALS: BP 134/61; PULSE 56; RESP 16; TEMP 36.7; O2SAT 100
== END 2022-08-30 13:25 | disposition home or self-care (01) ==
PROVIDERS: PCP Nurse Practitioner Family; Visit Provider Surgery
PROC: (CPT 38500; principal; 2022-08-30 12:00)
DX: C82.95 Follicular lymphoma, unspecified, lymph nodes of inguinal region and lower limb (principal)
CPT/HCPCS: 38531; 87077; 88305; 88360; 88368; 87070; 87075; 87186; 87205; 88307; 88313; 88361; J1100; J1885; J2405; J2704

== ENCOUNTER → 2022-09-11 07:59 | Outpatient (BNVA) | payer MEDICARE, SELFPAY | PROVIDERS: PCP Nurse Practitioner Family; Referring Provider Nurse Practitioner Family; Visit Provider Surgery | DX: Z48.817 Encounter for surgical aftercare following surgery on the skin and subcutaneous tissue (principal); C82.90 Follicular lymphoma, unspecified, unspecified site ==

== ENCOUNTER 2023-06-13 03:19 | Outpatient (RCR) | payer MEDICARE, SELFPAY ==
[2023-05-16] MEDS: Normal Saline Flush 10 ML SYR IVP (07:48)
[2023-05-16 08:24] LABS: Abs Immature Grans 0.01 10^3/uL (0.0-0.06); Absolute Basophil Count 0.01 10^3/uL (0.0-0.2); Absolute Eosinophil Count 0.03 10^3/uL (0.0-0.7); Absolute Lymphocyte Count 0.83 10^3/uL (1.2-3.4); Absolute Monocyte Count 0.36 10^3/uL (0.1-0.8); Absolute Neutrophil Count 2.12 10^3/uL (1.2-6.7); Basophils % 0.3; Eosinophils % 0.9; HCT 38.9 % (36.0-46.0); HGB 12.7 g/dL (11.2-15.7); Immature Grans % 0.3; Lymphocytes % 24.7; MCH 29.8 pg (27.0-33.0); MCHC 32.6 % (32.0-36.0); MCV 91 fL (80-95); MPV 9.9 fL (8.0-11.0); Monocytes % 10.7; Neutrophils % 63.1; Platelet Count 179 10^3/uL (130-400); RBC 4.26 10^6/uL (3.93-5.22); RDW 13.5 % (11.7-14.6); RDW-SD 45.4 fL; WBC 3.36 10^3/uL (4.4-10.8)
[2023-05-16 08:39] LABS: ALT 27 U/L (14-59); AST 15 U/L (15-37); Albumin 3.6 g/dL (3.4-5.0); Alkaline Phosphatase 61 U/L (46-116); Anion Gap 8.1 mmol/L (3-11); BUN 18 mg/dL (7-18); Bilirubin, Total 0.6 mg/dL (0.2-1.0); CO2 29.9 mmol/L (21.0-32.0); CREATININE 0.9 mg/dL (0.55-1.02); Calcium 8.5 mg/dL (8.5-10.1); Chloride 104 mmol/L (98-107); Estimated GFR 70.07 (mL/min/1.73m2); Glucose 115 mg/dL (74-106); LDH 161 U/L (81-234); Potassium 4.2 mmol/L (3.5-5.1); Sodium 142 mmol/L (136-145); Total Protein 6.9 g/dL (6.4-8.2); Uric Acid 5.6 mg/dL (2.6-6.0)
[2023-05-30] MEDS: Normal Saline Flush 10 ML SYR IVP (12:14)
[2023-05-30 12:23] LABS: Abs Immature Grans 0.03 10^3/uL (0.0-0.06); Absolute Basophil Count 0.03 10^3/uL (0.0-0.2); Absolute Eosinophil Count 0.14 10^3/uL (0.0-0.7); Absolute Lymphocyte Count 0.48 10^3/uL (1.2-3.4); Absolute Monocyte Count 0.48 10^3/uL (0.1-0.8); Absolute Neutrophil Count 4.02 10^3/uL (1.2-6.7); Basophils % 0.6; Eosinophils % 2.7; HGB 11.8 g/dL (11.2-15.7); Immature Grans % 0.6; Lymphocytes % 9.3; MCH 30.3 pg (27.0-33.0); MCHC 33.7 % (32.0-36.0); MCV 90 fL (80-95); MPV 9.8 fL (8.0-11.0); Monocytes % 9.3; Neutrophils % 77.5; Platelet Count 213 10^3/uL (130-400); RBC 3.89 10^6/uL (3.93-5.22); RDW 13.6 % (11.7-14.6); RDW-SD 45.1 fL; WBC 5.18 10^3/uL (4.4-10.8)
[2023-05-30 12:37] LABS: ALT 112 U/L (14-59); AST 52 U/L (15-37); Albumin 2.9 g/dL (3.4-5.0); Alkaline Phosphatase 122 U/L (46-116); Anion Gap 9.6 mmol/L (3-11); BUN 12 mg/dL (7-18); Bilirubin, Total 0.6 mg/dL (0.2-1.0); CO2 27.4 mmol/L (21.0-32.0); CREATININE 0.9 mg/dL (0.55-1.02); Calcium 8.7 mg/dL (8.5-10.1); Chloride 102 mmol/L (98-107); Estimated GFR 70.07 (mL/min/1.73m2); Glucose 166 mg/dL (74-106); LDH 230 U/L (81-234); Potassium 3.3 mmol/L (3.5-5.1); Sodium 139 mmol/L (136-145); Total Protein 6.5 g/dL (6.4-8.2); Uric Acid 3.2 mg/dL (2.6-6.0)
[2023-06-13] MEDS: Normal Saline Flush 10 ML SYR IVP (10:14)
[2023-06-13 10:23] LABS: Abs Immature Grans 0.01 10^3/uL (0.0-0.06); Absolute Basophil Count 0.05 10^3/uL (0.0-0.2); Absolute Eosinophil Count 0.24 10^3/uL (0.0-0.7); Absolute Lymphocyte Count 0.36 10^3/uL (1.2-3.4); Absolute Monocyte Count 0.37 10^3/uL (0.1-0.8); Absolute Neutrophil Count 2.52 10^3/uL (1.2-6.7); Basophils % 1.4; Eosinophils % 6.8; HCT 33.2 % (36.0-46.0); HGB 11.3 g/dL (11.2-15.7); Immature Grans % 0.3; Lymphocytes % 10.1; MCH 30.5 pg (27.0-33.0); MCV 90 fL (80-95); MPV 8.9 fL (8.0-11.0); Monocytes % 10.4; Platelet Count 253 10^3/uL (130-400); RBC 3.71 10^6/uL (3.93-5.22); RDW-SD 42.5 fL; WBC 3.55 10^3/uL (4.4-10.8)
[2023-06-13 10:47] LABS: ALT 30 U/L (14-59); AST 14 U/L (15-37); Albumin 3.3 g/dL (3.4-5.0); Alkaline Phosphatase 78 U/L (46-116); BUN 12 mg/dL (7-18); Bilirubin, Total 0.6 mg/dL (0.2-1.0); CREATININE 0.8 mg/dL (0.55-1.02); Calcium 8.6 mg/dL (8.5-10.1); Chloride 105 mmol/L (98-107); Estimated GFR 80.71 (mL/min/1.73m2); Glucose 112 mg/dL (74-106); LDH 199 U/L (81-234); Potassium 4.1 mmol/L (3.5-5.1); Sodium 141 mmol/L (136-145); Total Protein 6.4 g/dL (6.4-8.2); Uric Acid 4.8 mg/dL (2.6-6.0)
[2023-06-13 16:30] LABS: Calculated LDL 143 mg/dL (<100); Cholesterol 218 mg/dL (<200); HDL Cholesterol 56 mg/dL (40-60); Triglyceride 95 mg/dL (<150)
[2023-06-13 17:24] LABS: Vitamin D 25 Total 36.8 ng/mL (30-100)
[2023-06-14 10:09] LABS: Hepatitis C Ab w Rflx HCV PCR Negative (Negative)
== END 2023-06-13 23:59 | disposition home or self-care (01) ==
LOC: INF 03:19
PROVIDERS: PCP Nurse Practitioner Family; Visit Provider Nurse Practitioner Adult Health
DX: C82.18 Follicular lymphoma grade II, lymph nodes of multiple sites; Z45.2 Encounter for adjustment and management of vascular access device
CPT/HCPCS: 36591; 80053; 80061; 82306; 86803; 83615; 84550; 85025

== ENCOUNTER 2023-07-11 02:38 | Outpatient (RCR) | payer MEDICARE, SELFPAY ==
[2023-06-27 10:27] LABS: Abs Immature Grans 0.01 10^3/uL (0.0-0.06); Absolute Basophil Count 0.02 10^3/uL (0.0-0.2); Absolute Eosinophil Count 0.17 10^3/uL (0.0-0.7); Absolute Lymphocyte Count 0.19 10^3/uL (1.2-3.4); Absolute Monocyte Count 0.55 10^3/uL (0.1-0.8); Absolute Neutrophil Count 1.93 10^3/uL (1.2-6.7); Basophils % 0.7; Eosinophils % 5.9; HCT 33.4 % (36.0-46.0); HGB 11.1 g/dL (11.2-15.7); Immature Grans % 0.3; Lymphocytes % 6.6; MCH 30.2 pg (27.0-33.0); MCHC 33.2 % (32.0-36.0); MCV 91 fL (80-95); MPV 9.3 fL (8.0-11.0); Monocytes % 19.2; Neutrophils % 67.3; Platelet Count 235 10^3/uL (130-400); RBC 3.67 10^6/uL (3.93-5.22); RDW 13.7 % (11.7-14.6); RDW-SD 45.5 fL; WBC 2.87 10^3/uL (4.4-10.8)
[2023-06-27 10:44] LABS: ALT 30 U/L (14-59); AST 16 U/L (15-37); Albumin 3.2 g/dL (3.4-5.0); Alkaline Phosphatase 59 U/L (46-116); Anion Gap 8.5 mmol/L (3-11); BUN 17 mg/dL (7-18); Bilirubin, Total 0.6 mg/dL (0.2-1.0); CO2 27.5 mmol/L (21.0-32.0); CREATININE 0.8 mg/dL (0.55-1.02); Calcium 8.7 mg/dL (8.5-10.1); Chloride 107 mmol/L (98-107); Estimated GFR 80.71 (mL/min/1.73m2); Glucose 102 mg/dL (74-106); LDH 184 U/L (81-234); Potassium 4.1 mmol/L (3.5-5.1); Sodium 143 mmol/L (136-145); Total Protein 6.1 g/dL (6.4-8.2)
[2023-06-27] MEDS: Normal Saline Flush 10 ML SYR IVP (10:46)
[2023-07-11] MEDS: Normal Saline Flush 10 ML SYR IVP (08:40)
[2023-07-11 09:23] LABS: Abs Immature Grans 0.01 10^3/uL (0.0-0.06); Absolute Basophil Count 0.03 10^3/uL (0.0-0.2); Absolute Eosinophil Count 0.22 10^3/uL (0.0-0.7); Absolute Lymphocyte Count 0.19 10^3/uL (1.2-3.4); Absolute Monocyte Count 0.45 10^3/uL (0.1-0.8); Absolute Neutrophil Count 1.56 10^3/uL (1.2-6.7); Basophils % 1.2; Eosinophils % 8.9; HCT 32.4 % (36.0-46.0); HGB 11.1 g/dL (11.2-15.7); Immature Grans % 0.4; Lymphocytes % 7.7; MCH 31.3 pg (27.0-33.0); MCHC 34.3 % (32.0-36.0); MCV 91 fL (80-95); Monocytes % 18.3; Neutrophils % 63.5; Platelet Count 147 10^3/uL (130-400); RBC 3.55 10^6/uL (3.93-5.22); RDW 13.8 % (11.7-14.6); RDW-SD 46.1 fL; WBC 2.46 10^3/uL (4.4-10.8)
[2023-07-11 09:40] LABS: ALT 26 U/L (14-59); AST 16 U/L (15-37); Albumin 3.3 g/dL (3.4-5.0); Alkaline Phosphatase 75 U/L (46-116); Anion Gap 8.8 mmol/L (3-11); BUN 15 mg/dL (7-18); Bilirubin, Total 0.7 mg/dL (0.2-1.0); CO2 29.2 mmol/L (21.0-32.0); CREATININE 0.8 mg/dL (0.55-1.02); Calcium 8.5 mg/dL (8.5-10.1); Chloride 105 mmol/L (98-107); Estimated GFR 80.71 (mL/min/1.73m2); Glucose 133 mg/dL (74-106); LDH 205 U/L (81-234); Potassium 3.8 mmol/L (3.5-5.1); Sodium 143 mmol/L (136-145); Total Protein 6.4 g/dL (6.4-8.2); Uric Acid 5.1 mg/dL (2.6-6.0)
== END 2023-07-12 23:59 | disposition home or self-care (01) ==
LOC: INF 02:38
PROVIDERS: PCP Nurse Practitioner Family; Visit Provider Nurse Practitioner Adult Health
DX: C82.18 Follicular lymphoma grade II, lymph nodes of multiple sites (principal); M81.0 Age-related osteoporosis without current pathological fracture; Z00.00 Encounter for general adult medical examination without abnormal findings
CPT/HCPCS: 36591; 80053; 83615; 84550; 85025

== ENCOUNTER 2023-08-08 04:28 | Outpatient (RCR) | payer MEDICARE, SELFPAY ==
[2023-08-01] MEDS: Normal Saline Flush 10 ML SYR IVP (09:09)
[2023-08-01] MEDS: ZOLEDRONIC ACID/MANNITOL/WATER 5 MG/100 ML BTL 300 MG IVPB (09:10)
[2023-08-08 08:23] LABS: Abs Immature Grans 0.01 10^3/uL (0.0-0.06); Absolute Basophil Count 0.01 10^3/uL (0.0-0.2); Absolute Eosinophil Count 0.16 10^3/uL (0.0-0.7); Absolute Lymphocyte Count 0.22 10^3/uL (1.2-3.4); Absolute Monocyte Count 0.32 10^3/uL (0.1-0.8); Absolute Neutrophil Count 1.46 10^3/uL (1.2-6.7); Basophils % 0.5; Eosinophils % 7.3; HCT 33.5 % (36.0-46.0); HGB 11.1 g/dL (11.2-15.7); Immature Grans % 0.5; Lymphocytes % 10.1; MCH 31.9 pg (27.0-33.0); MCHC 33.1 % (32.0-36.0); MCV 96 fL (80-95); MPV 9.3 fL (8.0-11.0); Monocytes % 14.7; Neutrophils % 66.9; Platelet Count 179 10^3/uL (130-400); RBC 3.48 10^6/uL (3.93-5.22); RDW 15.2 % (11.7-14.6); RDW-SD 53.3 fL; WBC 2.18 10^3/uL (4.4-10.8)
[2023-08-08 08:56] LABS: ALT 22 U/L (14-59); AST 20 U/L (15-37); Albumin 3.4 g/dL (3.4-5.0); Alkaline Phosphatase 68 U/L (46-116); Anion Gap 8.9 mmol/L (3-11); BUN 10 mg/dL (7-18); Bilirubin, Total 0.4 mg/dL (0.2-1.0); CO2 28.1 mmol/L (21.0-32.0); CREATININE 0.8 mg/dL (0.55-1.02); Calcium 8.2 mg/dL (8.5-10.1); Chloride 107 mmol/L (98-107); Estimated GFR 80.71 (mL/min/1.73m2); Glucose 98 mg/dL (74-106); LDH 220 U/L (81-234); Potassium 4.4 mmol/L (3.5-5.1); Sodium 144 mmol/L (136-145); Total Protein 6.2 g/dL (6.4-8.2); Uric Acid 5.3 mg/dL (2.6-6.0)
[2023-08-08] MEDS: Normal Saline Flush 10 ML SYR IVP (10:12)
== END 2023-08-12 23:59 | disposition home or self-care (01) ==
LOC: INF 04:28
PROVIDERS: PCP Nurse Practitioner Family; Visit Provider Nurse Practitioner Adult Health
DX: M81.0 Age-related osteoporosis without current pathological fracture (principal); C82.18 Follicular lymphoma grade II, lymph nodes of multiple sites; Z45.2 Encounter for adjustment and management of vascular access device
CPT/HCPCS: 36591; 80053; 96365; 96523; 83615; 84550; 85025; J3489

== ENCOUNTER 2023-09-05 04:52 | Outpatient (RCR) | payer MEDICARE, SELFPAY ==
[2023-09-05] MEDS: Normal Saline Flush 10 ML SYR IVP (09:08)
[2023-09-05 09:22] LABS: Absolute Basophil Count 0.01 10^3/uL (0.0-0.2); Absolute Eosinophil Count 0.12 10^3/uL (0.0-0.7); Absolute Lymphocyte Count 0.13 10^3/uL (1.2-3.4); Absolute Monocyte Count 0.49 10^3/uL (0.1-0.8); Absolute Neutrophil Count 1.85 10^3/uL (1.2-6.7); Basophils % 0.4; Eosinophils % 4.6; HCT 34.3 % (36.0-46.0); HGB 11.7 g/dL (11.2-15.7); MCH 32.1 pg (27.0-33.0); MCHC 34.1 % (32.0-36.0); MCV 94 fL (80-95); MPV 9.8 fL (8.0-11.0); Monocytes % 18.8; Neutrophils % 71.2; Platelet Count 155 10^3/uL (130-400); RBC 3.65 10^6/uL (3.93-5.22); RDW 13.3 % (11.7-14.6); RDW-SD 45.7 fL
[2023-09-05 09:38] LABS: ALT 29 U/L (14-59); AST 17 U/L (15-37); Albumin 3.6 g/dL (3.4-5.0); Alkaline Phosphatase 69 U/L (46-116); Anion Gap 7.1 mmol/L (3-11); BUN 11 mg/dL (7-18); Bilirubin, Total 0.7 mg/dL (0.2-1.0); CO2 28.9 mmol/L (21.0-32.0); CREATININE 0.8 mg/dL (0.55-1.02); Calcium 8.1 mg/dL (8.5-10.1); Chloride 106 mmol/L (98-107); Estimated GFR 80.71 (mL/min/1.73m2); Glucose 96 mg/dL (74-106); LDH 204 U/L (81-234); Potassium 4.3 mmol/L (3.5-5.1); Sodium 142 mmol/L (136-145); Total Protein 6.6 g/dL (6.4-8.2)
== END 2023-09-11 23:59 | disposition home or self-care (01) ==
LOC: INF 04:52
PROVIDERS: PCP Nurse Practitioner Family; Visit Provider Nurse Practitioner Adult Health
DX: C82.18 Follicular lymphoma grade II, lymph nodes of multiple sites (principal); Z45.2 Encounter for adjustment and management of vascular access device
CPT/HCPCS: 36591; 80053; 83615; 85025

== ENCOUNTER 2023-09-19 05:05 | Outpatient (RCR) | payer MEDICARE, SELFPAY ==
[2023-09-19] MEDS: Normal Saline Flush 10 ML SYR IVP (07:06)
[2023-09-19 08:12] LABS: Abs Immature Grans 0.01 10^3/uL (0.0-0.06); Absolute Basophil Count 0.01 10^3/uL (0.0-0.2); Absolute Eosinophil Count 0.11 10^3/uL (0.0-0.7); Absolute Lymphocyte Count 0.23 10^3/uL (1.2-3.4); Absolute Monocyte Count 0.44 10^3/uL (0.1-0.8); Absolute Neutrophil Count 2.51 10^3/uL (1.2-6.7); Basophils % 0.3 %; Eosinophils % 3.3 %; HCT 32.7 % (36.0-46.0); HGB 11.1 g/dL (11.2-15.7); Immature Grans % 0.3 %; Lymphocytes % 6.9 %; MCH 32.3 pg (27.0-33.0); MCHC 33.9 % (32.0-36.0); MCV 95 fL (80-95); MPV 9.6 fL (8.0-11.0); Monocytes % 13.3 %; Neutrophils % 75.9 %; Platelet Count 201 10^3/uL (130-400); RBC 3.44 10^6/uL (3.93-5.22); RDW-SD 45.1 fL; WBC 3.31 10^3/uL (4.4-10.8)
[2023-09-19 08:33] LABS: ALT 24 U/L (14-59); AST 14 U/L (15-37); Albumin 3.4 g/dL (3.4-5.0); Alkaline Phosphatase 63 U/L (46-116); Anion Gap 7.5 mmol/L (3-11); BUN 22 mg/dL (7-18); Bilirubin, Total 0.5 mg/dL (0.2-1.0); CO2 29.5 mmol/L (21.0-32.0); CREATININE 0.9 mg/dL (0.55-1.02); Calcium 8.4 mg/dL (8.5-10.1); Chloride 106 mmol/L (98-107); Estimated GFR 70.07 (mL/min/1.73m2); Glucose 105 mg/dL (74-106); LDH 180 U/L (81-234); Potassium 4.1 mmol/L (3.5-5.1); Sodium 143 mmol/L (136-145); Total Protein 6.2 g/dL (6.4-8.2)
== END 2023-10-12 23:59 | disposition home or self-care (01) ==
LOC: INF 05:05
PROVIDERS: PCP Nurse Practitioner Family; Visit Provider Nurse Practitioner Adult Health
DX: C82.18 Follicular lymphoma grade II, lymph nodes of multiple sites (principal); Z45.2 Encounter for adjustment and management of vascular access device
CPT/HCPCS: 36591; 80053; 83615; 85025

== ENCOUNTER 2023-10-17 05:11 | Outpatient (RCR) | payer MEDICARE, SELFPAY ==
[2023-10-17] MEDS: Normal Saline Flush 10 ML SYR IVP (08:45)
[2023-10-17 08:55] LABS: Abs Immature Grans 0.02 10^3/uL (0.0-0.06); Absolute Basophil Count 0.01 10^3/uL (0.0-0.2); Absolute Eosinophil Count 0.05 10^3/uL (0.0-0.7); Absolute Lymphocyte Count 0.17 10^3/uL (1.2-3.4); Absolute Monocyte Count 0.39 10^3/uL (0.1-0.8); Absolute Neutrophil Count 3.21 10^3/uL (1.2-6.7); Basophils % 0.3 %; Eosinophils % 1.3 %; HCT 31.1 % (36.0-46.0); HGB 10.6 g/dL (11.2-15.7); Immature Grans % 0.5 %; Lymphocytes % 4.4 %; MCH 33.1 pg (27.0-33.0); MCHC 34.1 % (32.0-36.0); MCV 97 fL (80-95); MPV 9.4 fL (8.0-11.0); Monocytes % 10.1 %; Neutrophils % 83.4 %; Platelet Count 152 10^3/uL (130-400); RDW 13.2 % (11.7-14.6); RDW-SD 47.3 fL; WBC 3.85 10^3/uL (4.4-10.8)
[2023-10-17 09:13] LABS: ALT 25 U/L (14-59); AST 13 U/L (15-37); Albumin 3.5 g/dL (3.4-5.0); Alkaline Phosphatase 69 U/L (46-116); Anion Gap 6.7 mmol/L (3-11); BUN 17 mg/dL (7-18); Bilirubin, Total 0.6 mg/dL (0.2-1.0); CO2 30.3 mmol/L (21.0-32.0); CREATININE 0.9 mg/dL (0.55-1.02); Calcium 8.6 mg/dL (8.5-10.1); Chloride 105 mmol/L (98-107); Estimated GFR 70.07 (mL/min/1.73m2); Glucose 105 mg/dL (74-106); LDH 197 U/L (81-234); Potassium 4.4 mmol/L (3.5-5.1); Sodium 142 mmol/L (136-145); Total Protein 6.4 g/dL (6.4-8.2)
== END 2023-11-11 23:59 | disposition home or self-care (01) ==
LOC: INF 05:11
PROVIDERS: PCP Nurse Practitioner Family; Visit Provider Nurse Practitioner Adult Health
DX: C82.18 Follicular lymphoma grade II, lymph nodes of multiple sites (principal)
CPT/HCPCS: 36591; 80053; 83615; 85025

== ENCOUNTER 2024-03-24 03:20 | Outpatient (CLI) | payer MEDICARE, SELFPAY ==
[2024-03-24 08:52] LABS: Abs Immature Grans 0.01 10^3/uL (0.0-0.06); Absolute Basophil Count 0.01 10^3/uL (0.0-0.2); Absolute Eosinophil Count 0.13 10^3/uL (0.0-0.7); Absolute Lymphocyte Count 0.24 10^3/uL (1.2-3.4); Absolute Monocyte Count 0.38 10^3/uL (0.1-0.8); Basophils % 0.3 %; Eosinophils % 4.1 %; HCT 36.1 % (36.0-46.0); HGB 12.3 g/dL (11.2-15.7); Immature Grans % 0.3 %; Lymphocytes % 7.6 %; MCHC 34.1 % (32.0-36.0); MCV 94 fL (80-95); MPV 9.1 fL (8.0-11.0); Neutrophils % 75.7 %; Platelet Count 221 10^3/uL (130-400); RBC 3.84 10^6/uL (3.93-5.22); RDW 12.5 % (11.7-14.6); RDW-SD 42.9 fL; WBC 3.17 10^3/uL (4.4-10.8)
[2024-03-24 09:19] LABS: ALT 26 U/L (14-59); AST 17 U/L (15-37); Albumin 3.7 g/dL (3.4-5.0); Alkaline Phosphatase 78 U/L (46-116); Anion Gap 8.7 mmol/L (3-11); BUN 16 mg/dL (7-18); Bilirubin, Total 0.68 mg/dL (0.2-1.0); CO2 29.3 mmol/L (21.0-32.0); Calcium 8.9 mg/dL (8.5-10.1); Chloride 105 mmol/L (98-107); Estimated GFR 61.36 (mL/min/1.73m2); Glucose 104 mg/dL (74-106); LDH 187 U/L (81-234); Potassium 4.6 mmol/L (3.5-5.1); Sodium 143 mmol/L (136-145)
[2024-03-24 20:23] LABS: HBs Antibody, Quant <3.1 mIU/mL (See Note); Hep B Surface Ab Negative (See Note); Hepatitis B Core Antibody Negative (Negative); Hepatitis B Surface Antigen Negative (Negative)
[2024-03-25 09:29] LABS: IgA 84 mg/dL (85-499); IgG 700 mg/dL (610-1616); IgM 71 mg/dL (35-242)
== END 2024-03-24 03:21 | disposition home or self-care (01) ==
LOC: LBO 03:20
PROVIDERS: PCP Nurse Practitioner Family; Visit Provider Internal Medicine Hematology & Oncology
DX: Z11.59 Encounter for screening for other viral diseases (principal); C82.18 Follicular lymphoma grade II, lymph nodes of multiple sites
CPT/HCPCS: 36415; 80053; 82784; 86704; 86706; 87340; 83615; 85025

== ENCOUNTER 2024-04-03 11:53 | Outpatient (REF) | payer MEDICARE, SELFPAY ==
[2024-04-05 11:08] LABS: Campylobacter PCR Negative (Negative); Salmonella PCR Negative (Negative); Shiga Toxin PCR Negative (Negative); Shigella/Enteroinvasive Ecoli Negative (Negative)
== END 2024-04-03 11:54 | disposition home or self-care (01) ==
LOC: LBN 11:53
PROVIDERS: PCP Nurse Practitioner Family; Visit Provider Nurse Practitioner Adult Health
DX: R19.7 Diarrhea, unspecified (principal)
CPT/HCPCS: 87493; 87505

== ENCOUNTER 2024-08-02 10:55 | Outpatient (REF) | payer MEDICARE, SELFPAY | END 2024-08-02 10:56 | disposition home or self-care (01) | LOC: LBN 10:55 | PROVIDERS: PCP Nurse Practitioner Family; Visit Provider Physician Assistant | DX: J02.9 Acute pharyngitis, unspecified (principal); Z78.9 Other specified health status | CPT/HCPCS: 87070 ==

== ENCOUNTER 2024-08-04 13:44 | Outpatient (CLI) | payer MEDICARE, SELFPAY ==
[2024-08-04 11:39] LABS: Abs Immature Grans 0.01 10^3/uL (0.0-0.06); Absolute Basophil Count 0.02 10^3/uL (0.0-0.2); Absolute Lymphocyte Count 0.41 10^3/uL (1.2-3.4); Absolute Monocyte Count 0.33 10^3/uL (0.1-0.8); Absolute Neutrophil Count 4.26 10^3/uL (1.2-6.7); Basophils % 0.4 %; Eosinophils % 3.8 %; HCT 39.5 % (36.0-46.0); HGB 13.1 g/dL (11.2-15.7); Immature Grans % 0.2 %; Lymphocytes % 7.8 %; MCHC 33.2 % (32.0-36.0); MCV 97 fL (80-95); MPV 9.1 fL (8.0-11.0); Monocytes % 6.3 %; Neutrophils % 81.5 %; Platelet Count 208 10^3/uL (130-400); RBC 4.09 10^6/uL (3.93-5.22); RDW 12.8 % (11.7-14.6); RDW-SD 45.3 fL; WBC 5.23 10^3/uL (4.4-10.8)
[2024-08-04 12:06] LABS: ALT 24 U/L (14-59); AST 16 U/L (15-37); Albumin 3.9 g/dL (3.4-5.0); Alkaline Phosphatase 73 U/L (46-116); Anion Gap 4.5 mmol/L (3-11); BUN 16 mg/dL (7-18); Bilirubin, Total 0.6 mg/dL (0.2-1.0); CO2 34.5 mmol/L (21.0-32.0); Calcium 9.8 mg/dL (8.5-10.1); Chloride 104 mmol/L (98-107); Estimated GFR 61.36 (mL/min/1.73m2); Glucose 123 mg/dL (74-106); LDH 193 U/L (81-234); Potassium 4.6 mmol/L (3.5-5.1); Sodium 143 mmol/L (136-145); Total Protein 7.2 g/dL (6.4-8.2)
[2024-08-05 10:14] LABS: IgA 89 mg/dL (85-499); IgG 757 mg/dL (610-1616); IgM 71 mg/dL (35-242)
== END 2024-08-04 13:45 | disposition home or self-care (01) ==
LOC: LBO 13:45
PROVIDERS: PCP Nurse Practitioner Family; Visit Provider Internal Medicine Hematology & Oncology
DX: C82.18 Follicular lymphoma grade II, lymph nodes of multiple sites (principal)
CPT/HCPCS: 36415; 80053; 82784; 83615; 85025

== ENCOUNTER 2024-08-27 02:05 | Outpatient (RCR) | payer MEDICARE, SELFPAY ==
[2024-08-27] MEDS: Normal Saline Flush 5 ML SYR IVP (10:15)
[2024-08-27] MEDS: ZOLEDRONIC ACID/MANNITOL/WATER 5 MG/100 ML BTL 300 MG IVPB (10:15)
== END 2024-09-10 23:59 | disposition home or self-care (01) ==
LOC: INF 02:05
PROVIDERS: PCP Nurse Practitioner Family; Visit Provider Family Medicine
DX: M81.0 Age-related osteoporosis without current pathological fracture (principal)
CPT/HCPCS: 96365; J3489

== ENCOUNTER 2024-09-04 01:19 | Outpatient (CLI) | payer MEDICARE, SELFPAY ==
--- NOTE | 2024-09-04 08:00 | DI.DEXA_ITS ---
Exam(s) XR DEXA BONE DENSITY W/WO NUZHAT EXAM: XR DEXA BONE DENSITY W/WO NUZHAT CLINICAL HISTORY: osteoporosis,m81.0 TECHNIQUE: Routine DEXA evaluation of the lumbar spine, hip, or forearm. COMPARISON: CR XR DEXA BONE DENSITY W/WO NUZHAT from 06/08/2022 FINDINGS: Performed on a HoloAOTMP unit. Lateral image: No compression fracture evident. Lumbar Spine total T-score: -1.6. Prior reading in May 2022 was -2.5 Hip total T-score:-1.5. Prior reading in May 2022 was -2.0 Independent reading at the level of the femoral neck yields T-score of -2.5. Prior reading in 2022 was -3.0 Forearm total T-score: -2.3. Prior reading in May 2022 was -2.4 IMPRESSION: There has been improvement as described above. Bone mineral density presently measures in the low os teoporosis range. Fracture risk is moderate-high. Note: Any spine fracture indicates 5x risk for subsequent spine fracture and 2x risk for subsequent h ip fracture. World Health Organization criteria for BMD interpretation classify patients: Normal...... T- Score at or above -1.0 Osteopenic... T- Score between -1.0 and -2.5 Osteoporosis... T-Score at or below -2.5
== END 2024-09-04 01:39 ==
LOC: DI 01:19
PROVIDERS: PCP Nurse Practitioner Family; Visit Provider Nurse Practitioner Family
DX: M81.0 Age-related osteoporosis without current pathological fracture (principal)
CPT/HCPCS: 77080

== ENCOUNTER 2024-11-27 07:53 | Outpatient (CLI) | payer MEDICARE, SELFPAY ==
[2024-11-27 08:45] LABS: Abs Immature Grans 0.02 10^3/uL (0.0-0.06); HCT 35.1 % (36.0-46.0); HGB 11.5 g/dL (11.2-15.7); Immature Grans % 0.6 %; MCH 31.3 pg (27.0-33.0); MCHC 32.8 % (32.0-36.0); MCV 96 fL (80-95); MPV 9.6 fL (8.0-11.0); Platelet Count 200 10^3/uL (130-400); RBC 3.67 10^6/uL (3.93-5.22); RDW 12.1 % (11.7-14.6); RDW-SD 42.2 fL; WBC 3.62 10^3/uL (4.4-10.8)
[2024-11-27 09:09] LABS: ALT 26 U/L (14-59); AST 16 U/L (15-37); Albumin 3.7 g/dL (3.4-5.0); Alkaline Phosphatase 76 U/L (46-116); Anion Gap 7.7 mmol/L (3-11); BUN 15 mg/dL (7-18); Bilirubin, Total 0.4 mg/dL (0.2-1.0); CO2 30.3 mmol/L (21.0-32.0); Calcium 8.4 mg/dL (8.5-10.1); Chloride 105 mmol/L (98-107); Estimated GFR 79.71 (mL/min/1.73m2); Glucose 104 mg/dL (74-106); LDH 192 U/L (81-234); Potassium 4.4 mmol/L (3.5-5.1); Sodium 143 mmol/L (136-145); Total Protein 6.8 g/dL (6.4-8.2)
== END 2024-11-27 07:54 | disposition home or self-care (01) ==
LOC: LBO 07:53
PROVIDERS: PCP Nurse Practitioner Family; Visit Provider Internal Medicine Hematology & Oncology
DX: C82.18 Follicular lymphoma grade II, lymph nodes of multiple sites (principal)
CPT/HCPCS: 36415; 80053; 82784; 83615; 85025

== ENCOUNTER 2025-04-17 02:12 | Outpatient (CLI) | payer MEDICARE, SELFPAY ==
[2025-04-17 11:58] LABS: Abs Immature Grans 0.02 10^3/uL (0.0-0.06); HCT 37.7 % (36.0-46.0); HGB 12.6 g/dL (11.2-15.7); Immature Grans % 0.5 %; MCH 31.9 pg (27.0-33.0); MCHC 33.4 % (32.0-36.0); MCV 95 fL (80-95); MPV 9.4 fL (8.0-11.0); Platelet Count 186 10^3/uL (130-400); RBC 3.95 10^6/uL (3.93-5.22); RDW 12.5 % (11.7-14.6); RDW-SD 43.8 fL; WBC 3.97 10^3/uL (4.4-10.8)
[2025-04-17 12:09] LABS: LDH 248 U/L (120-246)
[2025-04-17 12:10] LABS: ALT 25 U/L (10-49); AST 30 U/L (<34); Albumin 4.3 g/dL (3.2-5.0); Alkaline Phosphatase 60 U/L (46-116); Anion Gap 7.2 mmol/L (3-11); BUN 16 mg/dL (9-23); Bilirubin, Total 0.70 mg/dL (0.2-1.2); CO2 30.8 mmol/L (20.0-31.0); Calcium 9.0 mg/dL (8.3-10.6); Chloride 106 mmol/L (98-107); Glucose 102 mg/dL (74-106); Potassium 4.3 mmol/L (3.5-5.1); Sodium 144 mmol/L (136-145); Total Protein 6.7 g/dL (5.7-8.2)
== END 2025-04-17 02:13 | disposition home or self-care (01) ==
LOC: LBO 02:12
PROVIDERS: PCP Nurse Practitioner Family; Visit Provider Internal Medicine Hematology & Oncology
DX: C82.18 Follicular lymphoma grade II, lymph nodes of multiple sites (principal)
CPT/HCPCS: 36415; 80053; 82784; 83615; 85025